=== PATIENT | female | born 1940 | race Caucasian/White ===

== ENCOUNTER → 2024-07-03 12:14 | Outpatient (REF) | payer MEDICARE, SELFPAY | LOC: RAD 12:14 | PROVIDERS: ATTENDING PHYSICIAN Internal Medicine Rheumatology; FAMILY PHYSICIAN Family Medicine | DX: M81.0 Age-related osteoporosis without current pathological fracture (principal) | CPT/HCPCS: 77080 ==

== ENCOUNTER 2025-02-23 18:16 | Inpatient (IN) | payer MEDICARE, SELFPAY ==
[2025-02-23] VITALS (14 sets, daily range): BP systolic 121–177; BP diastolic 56–119; BMI 19.5; BMI 20.4
--- NOTE | 2025-02-23 10:20 | ED.GENMED ---
History of Present Illness
<Kathryn García, OIL PAINT SHADER - Last Filed: 02/23/25 17:23>
General
Chief Complaint: Fever
Source: patient
Exam Limitations: none
Time Seen by Provider: 02/23/25 10:14
Nursing documentation reviewed up to this point in time: agreed with
History of Present Illness
History of Present Illness:
84-year-old female with history of HTN, thyroid cancer with thyroidectomy, hiatal hernia repair, tubal ligation, cholecystectomy, chronic anxiety, pancreatitis with Whipple procedure 2000, presents with a fever and general malaise starting 5 days
ago. She took acetaminophen on that day but non since. The patient reports a feeling of sickness and concerns about the recurrence of previous cancer. She has experienced some difficulty swallowing for past year, intermittently, where things 'get
stuck' (points to epigastric area), although she can swallow water without difficulty. The patient feels fatigued and experienced chills associated with the fever, did not take temperature. She spoke with her primary care physician, Dr. Tillman, this
morning to inform him of her coming here.
Pt has upper endoscopy scheduled in 4 days at [place] with her GI Dr. Pastor
Past History
<Kathryn García, OIL PAINT SHADER - Last Filed: 02/23/25 17:23>
Past History
ED Past Medical History: Cancer, GERD and HTN
ED Past Surgical History: Bowel resection (him him) and Orthopedic
Social History
Tobacco: Non-smoker
Alcohol: None
Drug: None
Personal:
Living: alone
Employment: Disabled
Family History
Family History: Hypertension
Review of Systems
<Kathryn García, OIL PAINT SHADER - Last Filed: 02/23/25 17:23>
Review of Systems
Allergies reviewed?: Yes
All Other Systems: ROS reviewed and negative except as documented in HPI and ROS
Constitutional: Reports fever, fatigue and chills
Respiratory: Denies cough or trouble breathing
Cardiac: Denies chest pain
ABD/GI: Reports other (food gets stuck at times past year.); Denies abdominal pain, nausea, vomiting, diarrhea, constipated, bloody stools or black stools
: Denies dysuria, frequency or difficulty voiding
Musculoskeletal: Reports no symptoms; Denies edema
Skin: Reports no symptoms
Neurological: Reports headache (mild, general )
Phy Exam
<Kathryn García, OIL PAINT SHADER - Last Filed: 02/23/25 17:23>
Physical Exam
Physical Exam:
GENERAL: No acute distress. A&Ox3.
CONSTITUTIONAL: Temp 101.2
EYES: clear, conjunctivae normal
ENMT: moist mucus membranes, Pharynx nl
RESPIRATORY: Regular respirations, nonlabored, lungs clear.
CARDIOVASCULAR: Regular rate and rhythm, no murmurs, no rubs.
GI: Soft, mild tenderness RUQ, normal BS
MUSCULOSKELETAL: Moves with ease. Well perfused.
SKIN: Warm, dry, pink
PSYCH: Normal mood and affect. Well kept, interactive and appropriate
NEUROLOGIC: Awake, alert and oriented. No focal neurological deficits
Sepsis
<Kathryn García, OIL PAINT SHADER - Last Filed: 02/23/25 17:23>
Sepsis Screening
Sepsis Assessment: Sepsis Ruled Out
Sepsis Screen
Sepsis Screen: Sepsis Ruled Out
Date: 02/23/25
Time: 17:23
<Sowmya Quiroga, DO - Last Filed: 02/23/25 20:57>
Sepsis Screen
Sepsis Screen: Sepsis Ruled Out
Date: 02/23/25
Time: 20:56
Course
<Kathryn García, OIL PAINT SHADER - Last Filed: 02/23/25 17:23>
Orders/Labs/Results
Orders:
Orders
02/23/25 10:30
Acetaminophen [Tylenol] 1,000 mg PO NOW STA
CR Chest - 2 Views Urgent
Comment:
Reason For Exam: fever, chills, fagigue
02/23/25 10:31
0.9% Sodium Chloride 1000 ml [Nss] 1,000 ml IV BOLUS
02/23/25 10:41
COVID-19 Antigen Urgent
Source: Nasal Swab
Complete Blood Count/With Diff Urgent
Comprehensive Metabolic Panel Urgent
Lactic Acid Q4H
Comment: CANCEL 2nd LACTIC ACID IF 1st LACTIC ACID IS LESS THAN 2
Blood Culture Q30M
JEMAL Source: Blood/Venous
Specimen Description:
Blood Culture Q30M
JEMAL Source: Blood/Venous
Specimen Description:
02/23/25 11:31
Urinalysis Reflex To Culture Urgent
Date Specimen was Collected: 02/23/25
Time Specimen was Collected: 11:30
02/23/25 13:04
CT Abd/Pel (IV only)-DH only Urgent
Comment:
Reason For Exam: fever, abd pain
02/23/25 15:04
Ketorolac [Toradol] 15 mg .ROUTE .STK-MED ONE
Ketorolac [Toradol] 15 mg IV NOW STA
02/23/25 15:08
Piperacillin/Tazo 3.375 Gram [Zosyn] 3.375 gram in 50 ml IV NOW
02/23/25 17:46
Add On- LAB Routine
Tests Added?: lactate
GASTROINTESTINAL CONSULT Routine
Consulting Provider: Chalino Hoff
Was physician already notified: Yes
02/23/25 17:47
Admit/Transfer Patient As Directed
Co-Sign Provider:
Level of Care: Inpatient admission
Assign to:: Medical/Surgical
Physician / Group: Hospitalist
Diagnosis: Fever
Reason for Hospitalization: as above
Expected length of stay greater than two midnights?: Yes
ELOS- Estimated Length of Stay in days: 3
I certify the patient meets the requirements for IP care: Yes
PRN Pain Medication Management As Directed
May give lesser potent ordered pain med per pt: Yes
preference::
Protocol:: Medication orders for pain may be administered in a
manner that supports deferring to patient preference
when the pt is:
- Requesting an ordered lesser potent pain medication.
Least to most potent pain medications are defined
as: acetaminophen < NSAID < tramadol < opioids
(morphine, oxycodone, hydromorphone).
- Requesting a lesser dose of the same medication IF
ORDERED.
- Requesting a less intrusive route of administration
if both routes are prescribed by the provider (PO <
IV).
02/23/25 17:49
Code Status As Directed
Resuscitation Status: Full Code
02/23/25 18:27
Lorazepam [Ativan] 0.5 mg PO TIDPRN PRN anxiety
Abnormal Lab Results
02/23/25
10:41
RBC 3.45 L 10^6/uL
(4.20-5.40)
Hgb 9.8 L g/dL
(12.0-16.0)
Hct 30.8 L %
(37.0-47.0)
MCHC 31.8 L g/dL
(33.0-37.0)
Absolute Lymphs (auto) 0.4 L 10^3/uL
(1.2-3.4)
Neutrophils % 85.9 H %
(42.2-75.2)
Lymphocytes % 5.1 L %
(20.5-51.1)
BUN 35 H mg/dl
(7-17)
Creatinine 1.3 H mg/dL
(0.6-1.0)
02/23/25 10:41
02/23/25 10:41
Vital Signs
Initial and Last Documented VS:
Initial Vital Signs
Temp Pulse Resp BP Pulse Ox
99 F 82 22 177/92 95
02/23/25 09:40 02/23/25 09:40 02/23/25 09:40 02/23/25 09:40 02/23/25 09:40
Last Documented Vital Signs
Temp Pulse Resp BP Pulse Ox
99.9 F 68 21 148/78 81
02/23/25 20:05 02/23/25 18:15 02/23/25 10:45 02/23/25 20:00 02/23/25 20:06
<Sowmya Quiroga, DO - Last Filed: 02/23/25 20:57>
Orders/Labs/Results
Orders:
Orders
02/23/25 10:30
Acetaminophen [Tylenol] 1,000 mg PO NOW STA
CR Chest - 2 Views Urgent
Comment:
Reason For Exam: fever, chills, fagigue
02/23/25 10:31
0.9% Sodium Chloride 1000 ml [Nss] 1,000 ml IV BOLUS
02/23/25 10:41
COVID-19 Antigen Urgent
Source: Nasal Swab
Complete Blood Count/With Diff Urgent
Comprehensive Metabolic Panel Urgent
Lactic Acid Q4H
Comment: CANCEL 2nd LACTIC ACID IF 1st LACTIC ACID IS LESS THAN 2
Blood Culture Q30M
JEMAL Source: Blood/Venous
Specimen Description:
Blood Culture Q30M
JEMAL Source: Blood/Venous
Specimen Description:
02/23/25 11:31
Urinalysis Reflex To Culture Urgent
Date Specimen was Collected: 02/23/25
Time Specimen was Collected: 11:30
02/23/25 13:04
CT Abd/Pel (IV only)-DH only Urgent
Comment:
Reason For Exam: fever, abd pain
02/23/25 15:04
Ketorolac [Toradol] 15 mg .ROUTE .STK-MED ONE
Ketorolac [Toradol] 15 mg IV NOW STA
02/23/25 15:08
Piperacillin/Tazo 3.375 Gram [Zosyn] 3.375 gram in 50 ml IV NOW
02/23/25 17:46
Add On- LAB Routine
Tests Added?: lactate
GASTROINTESTINAL CONSULT Routine
Consulting Provider: Chalino Hoff
Was physician already notified: Yes
02/23/25 17:47
Admit/Transfer Patient As Directed
Co-Sign Provider:
Level of Care: Inpatient admission
Assign to:: Medical/Surgical
Physician / Group: Hospitalist
Diagnosis: Fever
Reason for Hospitalization: as above
Expected length of stay greater than two midnights?: Yes
ELOS- Estimated Length of Stay in days: 3
I certify the patient meets the requirements for IP care: Yes
PRN Pain Medication Management As Directed
May give lesser potent ordered pain med per pt: Yes
preference::
Protocol:: Medication orders for pain may be administered in a
manner that supports deferring to patient preference
when the pt is:
- Requesting an ordered lesser potent pain medication.
Least to most potent pain medications are defined
as: acetaminophen < NSAID < tramadol < opioids
(morphine, oxycodone, hydromorphone).
- Requesting a lesser dose of the same medication IF
ORDERED.
- Requesting a less intrusive route of administration
if both routes are prescribed by the provider (PO <
IV).
02/23/25 17:49
Code Status As Directed
Resuscitation Status: Full Code
02/23/25 18:27
Lorazepam [Ativan] 0.5 mg PO TIDPRN PRN anxiety
Abnormal Lab Results
02/23/25
10:41
RBC 3.45 L 10^6/uL
(4.20-5.40)
Hgb 9.8 L g/dL
(12.0-16.0)
Hct 30.8 L %
(37.0-47.0)
MCHC 31.8 L g/dL
(33.0-37.0)
Absolute Lymphs (auto) 0.4 L 10^3/uL
(1.2-3.4)
Neutrophils % 85.9 H %
(42.2-75.2)
Lymphocytes % 5.1 L %
(20.5-51.1)
BUN 35 H mg/dl
(7-17)
Creatinine 1.3 H mg/dL
(0.6-1.0)
02/23/25 10:41
02/23/25 10:41
Vital Signs
Initial and Last Documented VS:
Initial Vital Signs
Temp Pulse Resp BP Pulse Ox
99 F 82 22 177/92 95
02/23/25 09:40 02/23/25 09:40 02/23/25 09:40 02/23/25 09:40 02/23/25 09:40
Last Documented Vital Signs
Temp Pulse Resp BP Pulse Ox
99.9 F 68 21 148/78 81
02/23/25 20:05 02/23/25 18:15 02/23/25 10:45 02/23/25 20:00 02/23/25 20:06
<Kathryn García, OIL PAINT SHADER - Last Filed: 02/23/25 17:23>
MDM/Problems Addressed
Differential Diagnosis Includes:
The Differential Diagnosis includes, in no particular order and is not limited to:
1. Urinary tract infection
2. Viral infection
3. Cancer recurrence or metastasis
4. Esophageal stricture
5. Gastroesophageal reflux disease (GERD)
6. Bacterial infection
7. Anemia
8. Dehydration
9. Pneumonia
MDM/Problems Addressed:
84-year-old female with history of COPD, HTN, thyroid cancer with thyroidectomy, hiatal hernia repair, tubal ligation, cholecystectomy, chronic anxiety, pancreatitis with Whipple procedure 2000, presents with a fever and general malaise starting 5
days ago. She took acetaminophen on that day but non since. The patient reports a feeling of sickness and concerns about the recurrence of previous cancer. She has experienced some difficulty swallowing for past year, intermittently, where things
'get stuck' (points to epigastric area), although she can swallow water without difficulty. The patient feels fatigued and experienced chills associated with the fever, did not take temperature. She spoke with her primary care physician, Dr. Tillman,
this morning to inform him of her coming here.
Pt has upper endoscopy scheduled in 4 days at [place] with her GI Dr. Pastor
Temp 101.2 for this examiner. Pleasant, NAD
CBC: No clinically significant abnormality, consistent with her chronic anemia
CMP: No clinically significant abnormality, consistent with her baseline CKD
Lactic:
UA negative
Chest x-ray NAD
COVID-negative
2:15 p.m.
IMPRESSION:
1. Post Whipple procedure. There is new marked intrahepatic biliary dilation in the left lobe of the liver, suggesting that the patient's fever is most likely related to cholangitis.
2. Right lower lobe 7 mm nodule, larger as compared with 3 mm prior. Given the interval change in size, at least somewhat suspicious for malignancy. Given the relatively small amount of growth over five-year interval, an inflammatory etiology is
also possible.
3. Bilateral renal cortical scarring. Asymmetric atrophic changes of the right kidney as compared with the left.
4. Material with the appearance of stool throughout the distal small bowel compatible with significant degree of slow transit.
5. Advanced aortoiliac atherosclerotic changes.
6. Numerous chronic appearing compression deformities of thoracic and lumbar spine as above. Probable chronic posttraumatic deformity left iliac wing.
Plan: Admit: Acute cholangitis, IV antibiotics, Hospitalist notified of admission.
<Kathryn García NP - Last Filed: 02/23/25 17:23>
*Pulse Oximetry
SaO2: 95
Oxygen Mode of Delivery: Room air
Patient hypoxic: no
*Critical Care Note
Total Time (30-74mins, 75-104mins- exclusive of procedures): Not Applicable
<Sowmya Quiroga DO - Last Filed: 02/23/25 20:57>
Update Note
Update Note:
Patient care assumed by me while awaiting transport upstairs. Patient was evaluated by the hospitalist who had been in contact with GI who felt that patient needed to be transferred to higher level of care. I discussed this with the patient who
would prefer to be transferred to [facility] if she needed to leave this hospital. I reached out to the [facility] transfer center. While awaiting callback from [facility], gastroenterology was able to rereview patient record and does not feel that transfer is
indicated. I then reviewed case with hospitalist team who accepts patient for admission.
ED Attending Note
<Kathryn García OIL PAINT SHADER - Last Filed: 02/23/25 17:23>
-
Portions of this chart may have been created with voice recognition software.� Occasional wrong word or��sound alike� substitutions may have occurred due to the inherent limitations of voice recognition software.
Discharge Plan
Departure
Patient Disposition: Admit
Date of Disposition: 02/23/25
Time of Disposition: 15:05
Admit to: Med/Surg
Presentation/result/management discussed w/ accepting MD/DO: Hospitalist
Condition: Fair
Discharge Problem:
Acute cholangitis, Fever
Interventions
Interventions:
*Risk Screen - Suicide Last Done: 02/23/25 09:40
*General Assessment Last Done: 02/23/25 10:23
*Neglect/Abuse Screening Last Done: 02/23/25 10:23
*ED- Fall Risk Assessment Last Done: 02/23/25 10:23
*ED COVID-19 Vaccine History Last Done: 02/23/25 10:23
ED- Neurological Assessment Last Done: 02/23/25 10:23
ED-Skin Assessment Last Done: 02/23/25 10:23
[2025-02-23] MEDS: NSS 1000 IV ×2 (10:46→22:18)
[2025-02-23] MEDS: TYLENOL 1000 MG PO ×2 (10:51→19:21)
[2025-02-23 10:55] LABS: Hematocrit 30.8 % (37.0-47.0); Hemoglobin 9.8 g/dL (12.0-16.0); Mean Corp Hgb Conc. 31.8 g/dL (33.0-37.0); Mean Corpuscular Volume 89.3 fL (81.0-99.0); Nucleated Red Blood Cells % 0 %; Platelet Count 222 10^3/uL (130-400); Red Cell Dist. Width 14.5 % (11.5-14.5)
[2025-02-23 11:10] LABS: ALT (SGPT) 19 U/L (0-35); AST (SGOT) 21 U/L (14-36); Albumin 3.8 g/dl (3.5-5.0); Alkaline Phosphatase 107 U/L (38-126); Blood Urea Nitrogen 35 mg/dl (7-17); Calcium 9.1 mg/dl (8.4-10.2); Carbon Dioxide 25 mmol/L (22-30); Chloride 107 mmol/L (98-107); Estimated Creatinine Clearance 24 ml/min; Glucose 99 mg/dl (70-99); Potassium 4.5 mmol/L (3.5-5.1); Sodium 140 mmol/L (135-145); Total Protein 6.7 g/dl (6.3-8.2); eGFR 41.06
[2025-02-23 11:16] LABS: COVID-19 Antigen Negative (Negative)
[2025-02-23 11:40] LABS: Urine Character Clear (Clear)
[2025-02-23] MEDS: TORADOL 15 MG IV (15:05)
[2025-02-23] MEDS: ZOSYN 50 IV ×2 (15:19→22:17)
--- NOTE | 2025-02-23 17:04 | HPS.HSE ---
Family Physician
-
Family Physician: Lawrence Tillman
Chief Complaint
-
Fever
History of Present Illness
This is an 85-year-old female past medical history of hypertension, thyroid cancer s/p thyroidectomy, hiatal hernia repair, tubal ligation, cholecystectomy, chronic anxiety, pancreatic cancer s/p Whipple procedure 2000 who presents to the ED
complaining of fever and chills. Patient reports intermittent fevers for the past 5 days in addition to chills. She denies sick contacts, she denies cough, congestion, urinary symptoms. In addition patient admits mild generalized abdominal pain
that she rates as a 2 out of 10. States pain does not radiate anywhere. She reports nausea episodes but denies vomiting. Denies change in stools, reports bowel movements, passing gas. Denies blood in urine, denies unintentional weight loss.
Pertinent to history, patient reports chronic sensation of food 'getting stuck'. She states she has had difficulty swallowing solids for the past year, but denies difficulty swallowing liquids. She denies unintentional weight loss, with
hematemesis. She is scheduled for an upper endoscopy with her GI doctor at [place] in 4 days.
Upon presentation to the ED, blood pressure 177/92, temperature 99, pulse 82, respiratory 22, O2 sats 95% on room air.� Laboratory showed WBC 6.8, hemoglobin 9.8, hematocrit 30.8, platelets 222 chemistry unremarkable except creatinine 1.3. �She was
evaluated with a chest x-ray- no acute disease and abdominal CT A/P
Medical History
Past Medical History
Past Medical History: Reports Other (hypertension, thyroid cancer s/p thyroidectomy, hiatal hernia repair, tubal ligation, cholecystectomy, chronic anxiety, pancreatic cancer s/p Whipple procedure 2000)
Past Surgical History: Reports Cholecystectomy and Gynocological
Social History
Tobacco: Non-smoker
Alcohol: None
Drug: None
Personal:
Living: Alone
Employment: Disabled
Family History
Family History: Hypertension
Allergies / Home Medications
Allergies reflects when Allergies were last updated in [facility].
Home Medications with original date entered in [facility]
Allergy/Medication List:
Allergies
Allergy/AdvReac Type Severity Reaction Status Date / Time
No Known Allergies Allergy Unverified 02/23/25 09:40
Home Medications
lorazepam 0.5 mg tablet 0.5 mg PO TIDPRN PRN anxiety 09/13/10
multivitamin with folic acid 400 mcg tablet (Tab-A-Roberth) 1 tab PO DAILY Supplement 09/13/10
denosumab 60 mg/mL subcutaneous syringe (Prolia) 60 mg SQ [id number] 04/01/20
escitalopram oxalate 20 mg tablet 20 mg PO DAILY Mental Health/Anxiety 04/01/20
levothyroxine 150 mcg tablet 150 mcg PO DAILY Thyroid 04/01/20
benazepril 20 mg-hydrochlorothiazide 12.5 mg tablet 1 tab PO DAILY 02/23/25
tjihwi-zatnanea-ogbncuv 36,000-114,000-180,000 unit capsule,delay rel (Creon) 1 cap PO DAILYPRN PRN with snacks 02/23/25
jbvnkv-ahyteeqo-pkncilz 36,000-114,000-180,000 unit capsule,delay rel (Creon) 3 cap PO AC 02/23/25
omeprazole 40 mg capsule,delayed release 40 mg PO BID 02/23/25
sucralfate 1 gram tablet 1 g PO DAILY 02/23/25
Review of Systems
-
History Source: Patient
A 12 point ROS was completed and negative except as noted: Yes
Constitutional: Reports Other (All review of systems negative except as documented in HPI)
Physical Exam
Vital Signs
Vital Signs
Temp Pulse Resp BP Pulse Ox
101.2 F H 67 21 146/62 98
02/23/25 10:40 02/23/25 16:45 02/23/25 10:45 02/23/25 16:00 02/23/25 16:45
Physical Exam
General: Well Developed, No Apparent Distress, Comfortable and Conversant
HEENT: NormoCephalic
Respiratory: Clear; No Wheezes or Crackles
Cardiac: S1/S2 and Regular Rhythm
GI: Soft, Non Distended, Normal Bowel Sounds and Tender (Mild tenderness to the right upper quadrant)
Musculoskeletal: No Edema
Neuro: Awake, Alert, Oriented and AO x 3
Laboratory Results
-
02/23/25 10:41
02/23/25 10:41
Laboratory Results
Lactic Acid Cancelled 02/23/25 14:30
Total Bilirubin 0.6 mg/dl (0.2-1.3) 02/23/25 10:41
AST 21 U/L (14-36) 02/23/25 10:41
ALT 19 U/L (0-35) 02/23/25 10:41
Alkaline Phosphatase 107 U/L (38-126) 02/23/25 10:41
Impression/Plan
-
Assessment/plan
#Fever likely secondary to ascending cholangitis
-CT abdomen and pelvis on presentation showing new left intrahepatic biliary duct dilation in the left lobe of the liver likely related to cholangitis
-History of Whipple procedure, now with biliary tract dilation
-Blood cultures obtained in the ED
-Initiated on IV Zosyn in ED
-continue broad-spectrum IV antibiotics with Zosyn
-Check lactate
-Tylenol for fevers
-Consult GI for possible ERCP
-Trend LFTs
#Dysphagia to solids
-Patient reports chronic sensation of food getting stuck,
-Was scheduled for endoscopy in 4 days at [place] with a GI doc
-Speech eval
-Consult GI
-Keep n.p.o. for now
#GERD
-PPI
#Chronic anemia
-Monitor Hgb Level
-Transfuse for Hgb <7
#Hypertension
-Hold Home Benzapril/hctz, given Cre level.
#Hypothyroidism
-Continue levothyroxine
#Anxiety
-Continue citalopram, lorazepam as needed
#Chronic compression fractures and kyphosis
CODE STATUS full code
DVT prophylaxis heparin subcu
[2025-02-23] MEDS: ATIVAN 0.5 MG PO (18:34)
[2025-02-23] MEDS: HEPARIN SC (22:00)
--- NOTE | 2025-02-23 22:35 | W.PN.UPDATE ---
Update Note
Progress Note Update
Patient seen and examined independently
Please see resident note for full details
85-year-old woman presents with fever and chills. She reports intermittent fevers for the past 5 days. She denies sick contacts, she denies cough, congestion, urinary symptoms. generalized abdominal pain 2 out of 10. Denies change in stools,
Reports chronic sensation of food 'getting stuck'. She states she has had difficulty swallowing solids for the past year, but denies difficulty swallowing liquids. She denies unintentional weight loss, with hematemesis. She is scheduled for an
upper endoscopy with her GI doctor at [place] in 4 days. At the time of my interview she was comfortable.
Past Medical History
essential hypertension,
thyroid cancer s/p thyroidectomy,
hiatal hernia repair,
tubal ligation,
cholecystectomy,
chronic anxiety,
pancreatic cancer s/p Whipple procedure 2000)
Physical Exam
General: Well Developed, No Apparent Distress,
HEENT: NormoCephalic
Respiratory: Clear;
Cardiac: S1/S2
GI: Soft, Non Distended, Tender (Mild tenderness to the right upper quadrant)
Neuro: Awake, Alert, Oriented and AO x [address] abdomen and pelvis:
new left intrahepatic biliary duct dilation in the left lobe of the liver likely related to cholangitis
Assessment/plan
1. Fever, possibly secondary to ascending cholangitis, but normal LFTs
History of Whipple procedure, now with biliary tract dilation
Blood cultures obtained in the ED
IV Zosyn
Check lactate
Consult GI for possible MRCP vs ERCP
Trend LFTs
2. Dysphagia to solids
Consult GI
Keep n.p.o. until seen by GI
See resident note for full details on
GERD
Chronic anemia
essential Hypertension
Hypothyroidism
Anxiety
Chronic compression fractures and kyphosis
[2025-02-24] MEDS: ZOSYN 50 IV ×4 (03:37→21:22)
[2025-02-24] MEDS: SYNTHROID PO (05:06)
[2025-02-24 07:50] VITALS: BP 136/60
[2025-02-24] MEDS: ZENPEP DELAYED RELEASE CAPSULE PO ×3 (08:03→15:54)
[2025-02-24] MEDS: CARAFATE PO (08:03)
[2025-02-24] MEDS: THERAGRAN PO (08:04)
[2025-02-24 08:13] LABS: Hematocrit 28.9 % (37.0-47.0); Hemoglobin 9.1 g/dL (12.0-16.0); Mean Corp Hgb Conc. 31.5 g/dL (33.0-37.0); Mean Corpuscular Volume 90.9 fL (81.0-99.0); Nucleated Red Blood Cells % 0 %; Platelet Count 166 10^3/uL (130-400); Red Cell Dist. Width 14.2 % (11.5-14.5)
[2025-02-24 08:18] LABS: ALT (SGPT) 17 U/L (0-35); AST (SGOT) 23 U/L (14-36); Albumin 3.3 g/dl (3.5-5.0); Alkaline Phosphatase 111 U/L (38-126); Blood Urea Nitrogen 24 mg/dl (7-17); Calcium 8.0 mg/dl (8.4-10.2); Carbon Dioxide 24 mmol/L (22-30); Chloride 109 mmol/L (98-107); Estimated Creatinine Clearance 24 ml/min; Glucose 89 mg/dl (70-99); Magnesium 1.7 mg/dl (1.6-2.3); Potassium 4.0 mmol/L (3.5-5.1); Sodium 140 mmol/L (135-145); Total Protein 5.8 g/dl (6.3-8.2); eGFR 41.06
--- NOTE | 2025-02-24 09:02 | CON.GI ---
Consultation
-
Date/Time Consultation Requested: 02/23/2025, 6pm
Date/Time Consultation Performed: 02/23/2025, 9am
Requesting Provider: Dr. Denis/Dr. Hunter
Performing Provider: Dr. Hoff
Reason for Consultation: abnormal CT
Medical History
Chief Complaint / HPI
Chief Complaint: fever
History of Present Illness:
85 yo F pmh panc ca s/p Whipple 2000 presenting to ER with fevers and chills. Also with vague abd pain (lower abdomen). Fever started last Wednesday. Tmax here 101.2.
Has chronic SOB and diarrhea, both unchanged. Denies urinary symptoms.
Questionable dysphagia - family at bedside states no, patient states difficulty swallowing bread. Family states EGD was scheduled to assess for ulcer not for dysphagia this week at [facility] (follows Dr. Montemayor).
Of note admitted 2019 with fever, epigastric pain underwent EGD with Dr. Thompson 10 cmm HH, tortuous eosophagus, edema, friable mucosa, hemorrhagic appearance, edema, friability, ulceration, bile in stomach and jejunum. Recommend indefinite PPI.
In ER - found to have completely normal LFTs (TB 0.6 yesterday, 0.8 today, AST/ALT/AP normal). GI was consulted for cholangitis based on CT read which showed 'new marked intrahepatic biliary dilation in left lobe of liver suggesting cholangitis;
lung nodule suspicious for malignancy, stool in colon, deformities in spine, renal cortical scarring'. Blood cultures + Kleb PNA.
Past Medical History
Past Medical History: Cancer (thyroid cancer, Whipple), HTN and Other (anxiety)
Past Surgical History: Other ([facility], director part, HH repair, tubal ligation, Whipple, thyroidectomy)
Social History
Tobacco: Non-Smoker
Alcohol: None
Drug: None
Family History
Family History: Reviewed & Not Pertinent
Allergies / Home Medications
Allergy/AdvReac Type Severity Reaction Status Date / Time
No Known Allergies Allergy Unverified 02/23/25 09:40
�Medication �Instructions �Recorded
lorazepam 0.5 mg tablet 0.5 mg PO TIDPRN PRN anxiety 09/13/10
multivitamin with folic acid 400 1 tab PO DAILY Supplement 09/13/10
mcg tablet (Tab-A-Roberth)
denosumab 60 mg/mL subcutaneous 60 mg SQ [id number] 04/01/20
syringe (Prolia)
escitalopram oxalate 20 mg tablet 20 mg PO DAILY Mental 04/01/20
Health/Anxiety
levothyroxine 150 mcg tablet 150 mcg PO DAILY Thyroid 04/01/20
benazepril 20 1 tab PO DAILY 02/23/25
mg-hydrochlorothiazide 12.5 mg
tablet
wxczns-ibehsbss-kxsokfl 1 cap PO DAILYPRN PRN with snacks 02/23/25
36,000-114,000-180,000 unit
capsule,delay rel (Creon)
rksvlp-iknqhsls-pqewcgr 3 cap PO AC 02/23/25
36,000-114,000-180,000 unit
capsule,delay rel (Creon)
omeprazole 40 mg capsule,delayed 40 mg PO BID 02/23/25
release
sucralfate 1 gram tablet 1 g PO DAILY 02/23/25
Review of Systems
-
All other systems: A 12 pt ROS was Negative except as stated above in HPI
Vital Signs
Temp Pulse Resp BP Pulse Ox
99.3 F 75 24 136/60 96
02/24/25 07:50 02/24/25 07:50 02/24/25 07:50 02/24/25 07:50 02/24/25 07:50
Physical Exam
Exam
General: Well Developed
HEENT: Normocephalic
Respiratory: Clear
Cardiac: S1/S2
GI: Non Tender and Non Distended
Musculoskeletal: No Clubbing
Skin: Warm
Neuro: AO x 3
Hematologic/Lymphatic: No Lymphadenopathy
Psych: Calm
Results
WBC 6.4 10^3/uL (4.8-10.8) 02/24/25 07:00
Hgb 9.1 g/dL (12.0-16.0) L 02/24/25 07:00
Hct 28.9 % (37.0-47.0) L 02/24/25 07:00
MCV 90.9 fL (81.0-99.0) 02/24/25 07:00
Plt Count 166 10^3/uL (130-400) D 02/24/25 07:00
Absolute Neuts (auto) 5.2 10^3/uL (1.4-6.5) 02/24/25 07:00
Sodium 140 mmol/L (135-145) 02/24/25 07:00
Potassium 4.0 mmol/L (3.5-5.1) 02/24/25 07:00
Chloride 109 mmol/L (98-107) H 02/24/25 07:00
Carbon Dioxide 24 mmol/L (22-30) 02/24/25 07:00
BUN 24 mg/dl (7-17) H 02/24/25 07:00
Creatinine 1.3 mg/dL (0.6-1.0) H 02/24/25 07:00
Calcium 8.0 mg/dl (8.4-10.2) L 02/24/25 07:00
Total Bilirubin 0.8 mg/dl (0.2-1.3) 02/24/25 07:00
AST 23 U/L (14-36) 02/24/25 07:00
ALT 17 U/L (0-35) 02/24/25 07:00
Alkaline Phosphatase 111 U/L (38-126) 02/24/25 07:00
Diagnostic Image Results:
Prior GI Procedures:
EGD:
Colonoscopy:
Assessment / Plan
-
84 yo pmh Whipple presenting for fever, CT with intrahepatic meli dil but LFTs normal and no RUQ pain however + Kleb.
Recommend MRI/MRCP ordered and pending.
IF MRCP + for biliary obstruction cannot do ERCP here due to Whipple anatomy.
Would need to be transferred d/w pt/family at bedside now IF necessary.
Continue Zosyn.
Continue PPI BID.
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 dysphagia as well).
D/w hospitalist in detail.
-
-
Thank you for consultation and allowing me to participate in the patient's care. Please call the operations processor GI physician during the after hours with any questions or concerns.
[2025-02-24] MEDS: HEPARIN 5000 UNITS SC ×2 (09:18→20:46)
[2025-02-24] MEDS: NSS (PRESERVATIVE FREE) 10 ML IV ×2 (10:54→20:54)
[2025-02-24] MEDS: PROTONIX IV 40 MG IV ×2 (10:54→20:54)
[2025-02-24] MEDS: MORPHINE SULFATE 1 MG IV (10:54)
--- NOTE | 2025-02-24 12:09 | W.PN.HOSP.TC ---
Addendum entered and electronically signed by Jarrell Mejia MD 02/24/25 13:53:
Severe intrahepatic ductal dilatation in the left lobe of the liver. Two ovoid low signal intensity filling defects in the central left hepatic duct raising suspicion for intrahepatic gallstones (hepatolithiasis). Intrahepatic pneumobilia could have
a similar MRI appearance.
Spoke to GI at - engaged with [facility] for Tx for ERCP
[place] Accepted
DC is in
Cont abx
ERCP and further interventions as per [facility]
More than 30 minutes spent in discharge including
Final examination of the patient
Summarizing hospital stay
Instructions for continuing care to all relevant caregivers
Preparation of discharge records, prescriptions, and referral forms
Total time spent (in minutes): 36
Original Note:
Today's Communication/Plan
-
Follow-up MRI/MRCP
If MRCP is positive for biliary patholgoy, cannot do ERCP here due to Whipple's anatomy
If MRCP negative, defer to GI for EGD
Continue antibiotics
Follow-up cultures, repeat
Continue PPI twice daily
Speech eval
Assessment / Plan
Assessment / Plan
General: Well Developed, No Apparent Distress, Comfortable and Conversant
HEENT: NormoCephalic
Respiratory: Clear; No Wheezes or Crackles
Cardiac: S1/S2 and Regular Rhythm
GI: Soft, Non Distended, Normal Bowel Sounds and Tender (Mild tenderness to the right upper quadrant)
Musculoskeletal: No Edema
Neuro: Awake, Alert, Oriented and AO x 3
#Sepsis
#Bacteremia
�Suspected source includes biliary history of Whipple's although gastrojejunal ulcer remains higher on the differential, allowing for translocation of Klebsiella
� Follow-up MRI/MRCP
� If MRCP is positive for biliary patholgoy, cannot do ERCP here due to Whipple's anatomy
� If MRCP negative, defer to GI for EGD
� Continue antibiotics
� Follow-up cultures, repeat
� Continue PPI twice daily
�Trend LFTs
#Dysphagia to solids
-Patient reports chronic sensation of food getting stuck,
-Was scheduled for endoscopy in 4 days at [facility] with a GI doc
-Speech eval
-Consult GI
-Keep n.p.o. for now, continue continue diet once cleared by speech after MRI
#Right lower lobe 7 mm nodule, larger as compared with 3 mm prior.
- Given the interval change in size, at least somewhat suspicious for malignancy.
-Given the relatively small amount of growth over five-year interval, an inflammatory etiology is also possible.
-F/u outpatient
#GERD
-PPI twice daily
#Chronic anemia
-Monitor Hgb Level
-Transfuse for Hgb <7
#Hypertension
�Hold antihypertensives for today while n.p.o.
#Hypothyroidism
-Continue levothyroxine
#Anxiety
-Continue citalopram, lorazepam as needed
#Chronic compression fractures and kyphosis
CODE STATUS full code
DVT prophylaxis heparin subcu
Total time spent on today's encounter was 50 minutes which included time spent in counseling the patient/family regarding diagnosis and treatment plan as listed above, goals of care, and symptom management. Case was discussed with nursing staff,
specialists, and care coordinators/case management. All labs and imaging personally reviewed by me. Remainder the time spent in detailed review of previous records, lab data, imaging, and other medical provider documentation.
Anticipated Discharge: > 48 hours
Subjective/Interval History
-
Date of Service: February 24, 2025
Anxious this morning. Blood cultures positive
Objective Data
-
Labs:
Laboratory Results
02/24/25
07:00
WBC 6.4
Hgb 9.1 L
Hct 28.9 L
Plt Count 166 D
Sodium 140
Potassium 4.0
Chloride 109 H
Carbon Dioxide 24
BUN 24 H
Creatinine 1.3 H
Glucose 89
Calcium 8.0 L
Total Bilirubin 0.8
AST 23
ALT 17
Alkaline Phosphatase 111
Vital Signs:
Vital Signs
Temp Pulse Resp BP Pulse Ox
99.3 F 75 24 136/60 96
02/24/25 07:50 02/24/25 07:50 02/24/25 07:50 02/24/25 07:50 02/24/25 07:50
I&O
02/23/25 02/24/25 02/25/25
06:59 06:59 06:59
Intake Total 660 / 660
Balance 660 / 660
Review of Systems
-
History Source: Patient
All other systems: Not reviewed unless documented
Data Reviewed
-
Diagnostic Radiology: Report Reviewed by me
CT Scan: Report Reviewed by me
Labs: Labs Reviewed by me
--- NOTE | 2025-02-24 13:53 | W.DS.TRANS ---
DC Summary - Respiratory Support Technician
-
Discharge Instructions:
Discharge Diagnosis/Procedures
#Sepsis
#Bacteremia
�Suspected source includes biliary history of
Whipple's
Diet Regular
Instructions:
Stand-Alone Forms:
Changes to Home Medications: No
Discharge Medications:
DC Medications w/original date entered in [employer]
lorazepam 0.5 mg tablet 0.5 mg PO TIDPRN PRN anxiety 09/13/10
multivitamin with folic acid 400 mcg tablet (Tab-A-Roberth) 1 tab PO DAILY Supplement 09/13/10
denosumab 60 mg/mL subcutaneous syringe (Prolia) 60 mg SQ [id number] 04/01/20
escitalopram oxalate 20 mg tablet 20 mg PO DAILY Mental Health/Anxiety 04/01/20
levothyroxine 150 mcg tablet 150 mcg PO DAILY Thyroid 04/01/20
benazepril 20 mg-hydrochlorothiazide 12.5 mg tablet 1 tab PO DAILY Blood Pressure 02/23/25
gtaodj-gfsmepdo-rpazbmr 36,000-114,000-180,000 unit capsule,delay rel (Creon) 1 cap PO DAILYPRN PRN with snacks 02/23/25
uwdbdd-zebnwyty-njzyztk 36,000-114,000-180,000 unit capsule,delay rel (Creon) 3 cap PO AC Pancreas 02/23/25
omeprazole 40 mg capsule,delayed release 40 mg PO BID Gastrointestinal Issue 02/23/25
sucralfate 1 gram tablet 1 g PO DAILY Gastrointestinal Issue 02/23/25
Home Medication Changes
Pending Results: No
[2025-02-24] MEDS: LEXAPRO PO (14:03)
[2025-02-24 15:45] VITALS: BP 130/62
[2025-02-24] MEDS: NSS 1000 IV (15:53)
[2025-02-24 19:43] VITALS: BP 162/72
[2025-02-24] MEDS: VALIUM INJECTION 2 MG IV (21:06)
[2025-02-24 22:28] VITALS: BP 123/59
[2025-02-25 03:30] VITALS: BP 119/70
--- NOTE | 2025-02-25 03:30 | PTCARENOTE ---
Pt for transfer to [facility], updated transfer center.
[2025-02-25] MEDS: NSS 1000 IV (03:32)
[2025-02-25] MEDS: ZOSYN 50 IV ×4 (03:32→21:59)
[2025-02-25] MEDS: SYNTHROID PO (03:36)
[2025-02-25 07:00] VITALS: BP 142/78
[2025-02-25] MEDS: PROTONIX IV 40 MG IV ×2 (07:41→21:48)
[2025-02-25] MEDS: NSS (PRESERVATIVE FREE) 10 ML IV ×2 (07:41→21:47)
[2025-02-25] MEDS: HEPARIN 5000 UNITS SC ×2 (07:42→20:04)
[2025-02-25] MEDS: ZENPEP DELAYED RELEASE CAPSULE PO ×3 (07:42→15:57)
[2025-02-25] MEDS: LEXAPRO PO (07:42)
[2025-02-25] MEDS: CARAFATE PO (07:42)
[2025-02-25] MEDS: THERAGRAN PO (07:42)
[2025-02-25 09:29] LABS: Hematocrit 28.7 % (37.0-47.0); Hemoglobin 9.1 g/dL (12.0-16.0); Mean Corp Hgb Conc. 31.7 g/dL (33.0-37.0); Mean Corpuscular Volume 89.4 fL (81.0-99.0); Platelet Count 184 10^3/uL (130-400); Red Cell Dist. Width 14.6 % (11.5-14.5)
[2025-02-25 09:42] LABS: ALT (SGPT) 17 U/L (0-35); AST (SGOT) 25 U/L (14-36); Albumin 3.1 g/dl (3.5-5.0); Alkaline Phosphatase 103 U/L (38-126); Blood Urea Nitrogen 29 mg/dl (7-17); Calcium 7.6 mg/dl (8.4-10.2); Chloride 113 mmol/L (98-107); Estimated Creatinine Clearance 22 ml/min; Glucose 91 mg/dl (70-99); Potassium 4.7 mmol/L (3.5-5.1); Sodium 142 mmol/L (135-145); Total Protein 5.7 g/dl (6.3-8.2); eGFR 37.56
[2025-02-25 09:52] LABS: Carbon Dioxide 20 mmol/L (22-30)
--- NOTE | 2025-02-25 10:09 | W.PN.GI.CBS2 ---
Today's Communication / Plan
-
pending transfer [facility]
Assessment / Plan
-
84 yo pmh Whipptyler presenting for fever, CT with intrahepatic meli dil but LFTs normal and no RUQ pain however + Kleb.
MRI with intrahepatic filling defects.
Bili remains normal, no pain - atypical to have normal bilirubin if obstructed. However, CXR, urine studies unrevealing no other source.
D/w hospitalist yesterday do not have capabilities here for endoscopic removal of stones - he reached out to [facility] who accepted transfer.
I d/w [facility] fellow today informally - he mentioned location of stones PTC may be best. Also [facility] fellow recommended ID consult I d/w hospitalist.
Continue Zosyn.
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
Clear liquid diet.
History of ? dysphagia can follow up outpatient.
D/w hospitalist and [facility] fellow as above in detail.
Subjective
Subjective
Date of Service: February 25, 2025
No fevers, no pain overnight
hungry
Objective
Data Reviewed
Laboratory Data:
Laboratory Results
02/25/25 08:53
02/25/25 08:53
Laboratory Results
Magnesium 1.7 mg/dl (1.6-2.3) 02/24/25 07:00
Total Bilirubin 0.6 mg/dl (0.2-1.3) 02/25/25 08:53
AST 25 U/L (14-36) 02/25/25 08:53
ALT 17 U/L (0-35) 02/25/25 08:53
Alkaline Phosphatase 103 U/L (38-126) 02/25/25 08:53
Vital Signs and I&O:
Vital Signs
Temp Pulse Resp BP Pulse Ox
97.6 F 66 16 142/78 97
02/25/25 07:00 02/25/25 07:00 02/25/25 07:00 02/25/25 07:00 02/25/25 07:00
I&O
02/24/25 02/25/25 02/26/25
06:59 06:59 06:59
Intake Total 660 / 660 750 / 750
Balance 660 / 660 750 / 750
Physical Exam
Physical Exam
GI: Non Distended and Non Tender
[2025-02-25] MEDS: ATIVAN 0.5 MG PO ×2 (10:21→19:07)
[2025-02-25 10:59] VITALS: BMI 20.4
[2025-02-25 11:00] VITALS: BP 163/82
--- NOTE | 2025-02-25 11:28 | CM ---
CM reviewed chart, patient for transfer to [facility]- per transfer center [facility], , patient requires insurance auth-submitted via [employer], pending reference #[id number], accepting DrShakira at [facility]- Dr. Galen Burgess. Per
[facility], cannot accept patient with pending auth and need approval from insurance. Clinicals faxed to [facility]. [facility] will cash posting representative at [facility] to expedite auth. Nurse, family/patient aware. CM will continue to follow for all discharge
planning needs. Ambulance transport forms on chart.
Plan; authorization pending for transfer to [facility].
--- NOTE | 2025-02-25 12:00 | CM ---
Addendum entered by Louisa Patten 02/25/25 15:23:
Call placed to [facility] to check on authorization status, [phone], spoke with Billie Taylor still no determination from insurance, per insurance the have 24 to 72 hours to approve.
Original Note:
aquatics manager is following patient along with the assigned lead case manager, patient has been accepted by [facility], lead case manager spoke with lead case managerJohanna at [facility] who is requesting authorization for hospital to hospital transfer,
request sent through [employer] and pending reference number is [id number], all clinicals faxed to [phone], lead case manager left a message for Amelie Patel lead case manager at [facility] [phone] to expedite request. Call also placed to Oly at [facility]
to check on status and reference number is still pending per Oly.
Plan; Waiting on Auth for hospital to hospital transfer.
--- NOTE | 2025-02-25 12:25 | W.PN.HOSP.TC ---
Today's Communication/Plan
-
cont iv abx
f/u final cultures, repeat
CLD
Accepted to Tx to [facility] - awaiting bed; Level 1 Emergent Tx
Assessment / Plan
Assessment / Plan
General: Well Developed, No Apparent Distress, Comfortable and Conversant
HEENT: NormoCephalic
Respiratory: Clear; No Wheezes or Crackles
Cardiac: S1/S2 and Regular Rhythm
GI: Soft, Non Distended, Normal Bowel Sounds and Tender (Mild tenderness to the right upper quadrant)
Musculoskeletal: No Edema
Neuro: Awake, Alert, Oriented and AO x 3
#Sepsis
#Bacteremia, Klebsiella
�Suspected source includes biliary history of Whipple's although gastrojejunal ulcer remains higher on the differential, allowing for translocation of Klebsiella
� Follow-up MRI/MRCP: intrahepatic filling defects.
� Continue antibiotics
� Follow-up cultures, repeat
� Continue PPI twice daily
�Trend LFTs
� Can advance to clear liquid diet
� ID consulted
� Accepted for transfer to [place] for ERCP due to not having capabilities here for endoscopic removal of stones
#Dysphagia to solids
-Patient reports chronic sensation of food getting stuck,
-Was scheduled for endoscopy in 4 days at [place] with a GI doc
-Speech eval
-Consult GI
-CLD
#Right lower lobe 7 mm nodule, larger as compared with 3 mm prior.
- Given the interval change in size, at least somewhat suspicious for malignancy.
-Given the relatively small amount of growth over five-year interval, an inflammatory etiology is also possible.
-F/u outpatient
#GERD
-PPI twice daily
#Chronic anemia
-Monitor Hgb Level
-Transfuse for Hgb <7
#Hypertension
�Hold antihypertensives for today while n.p.o.
#Hypothyroidism
-Continue levothyroxine
#Anxiety
-Continue citalopram, lorazepam as needed
#Chronic compression fractures and kyphosis
CODE STATUS full code
DVT prophylaxis heparin subcu
More than 30 minutes spent in discharge including
Final examination of the patient
Summarizing hospital stay
Instructions for continuing care to all relevant caregivers
Preparation of discharge records, prescriptions, and referral forms
Total time spent (in minutes): 37
Anticipated Discharge: Today
Subjective/Interval History
-
Date of Service: February 25, 2025
No acute events
Objective Data
-
Labs:
Laboratory Results
02/25/25
08:53
WBC 7.8
Hgb 9.1 L
Hct 28.7 L
Plt Count 184
Sodium 142
Potassium 4.7
Chloride 113 H
Carbon Dioxide 20 L
BUN 29 H
Creatinine 1.4 H
Glucose 91
Calcium 7.6 L
Total Bilirubin 0.6
AST 25
ALT 17
Alkaline Phosphatase 103
Vital Signs:
Vital Signs
Temp Pulse Resp BP Pulse Ox
97.6 F 66 16 142/78 97
02/25/25 07:00 02/25/25 07:00 02/25/25 07:00 02/25/25 07:00 02/25/25 07:00
I&O
02/24/25 02/25/25 02/26/25
06:59 06:59 06:59
Intake Total 660 / 660 750 / 750
Balance 660 / 660 750 / 750
Review of Systems
-
History Source: Patient
All other systems: Not reviewed unless documented
Data Reviewed
-
Diagnostic Radiology: Report Reviewed by me
CT Scan: Report Reviewed by me
MRI: Report Reviewed by me
Labs: Labs Reviewed by me
[2025-02-25] MEDS: LR 1000 IV (13:03)
--- NOTE | 2025-02-25 16:29 | CON.ID ---
Consultation
-
Date/Time Consultation Requested: February 25, 2025 1317
Date/Time Consultation Performed: February 25, 2025 1630
Requesting Provider: Dr. Jarrell Mejia
Performing Provider: Dr. Sherlyn Spear
Reason for Consultation: Klebsiella bacteremia
Chief Complaint / Past History
Chief Complaint
Fever and chills
History of Present Illness
84-year-old female with remote history of pancreatic cancer status post chemoradiation and Whipple's 25 years ago, hiatal hernia, history of esophageal stricture requiring dilation, GJ ulcer who presented to the hospital on February 23 due to fevers
and shaking chills. She reports not feeling well 5 days prior to admission. She was weak, tired and slept a lot. Was having intermittent fevers which became more frequent. Chills also came more frequent and worse. Positive nausea without
vomiting. Positive mild upper mid abdominal pain. She did call her GI physician at [place] who scheduled her for endoscopy this week but she decided to come to the hospital instead. She has chronic diarrhea unchanged. No dysuria, urgency,
frequency, or flank pain. No cough. Recently she has been experiencing intermittent dysphagia with solid foods. Denies aspiration. In the ED temperature 101.2. Urine analysis negative. COVID/influenza negative. Blood cultures x 2 positive for
Klebsiella pneumoniae. Chest x-ray no infiltrates. She is currently on Zosyn. She is feeling better while in the hospital. No further epigastric pain. Chills have resolved.
Past History
Additional Past Medical History:
COPD.
Hypertension.
Hypothyroidism
Moderate to large Hiatal hernia
Hx esophageal stricture s/p dilation
GERD.
Hypertension
h/o GJ ulcer
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
Thyroid cancer s/p thyroidectomy
Chronic diarrhea
History of right hip fracture ORIF
Allergy History:
No Known Allergies Allergy (Unverified 02/23/25 09:40)
Medications Reviewed: Yes
Current Antibiotics:
Zosyn day 3
Social History
Tobacco: Former Smoker
Alcohol: None
Drug: None
Personal:
Living: Alone
Family History
Family History: Not Pertinent
Review of Systems
Review of Systems
General: Fever, Chills and Change in Appetite
HEENT: Negative Stiff Neck, Sinus Problems, Headache or Pharyngitis
Cardiovascular: Negative Chest Pain, Dyspnea or Edema
Respiratory: Negative Dyspnea, Cough or Sputum Production
Gasteroenterology: Nausea and Diarrhea (chronic stable); Negative Vomiting
Genital / Urological: Negative Dysuria, Hematuria or Flank Pain
Endocrine: Weakness
Musculoskeletal: Negative Arthralgias
Skin / Hair / Nails: Negative Rash
Neurological: Negative Dizziness
All systems: All other systems were reviewed and were negative
Vital Signs
Temp Pulse Resp BP Pulse Ox
97.8 F 70 16 163/82 96
02/25/25 11:00 02/25/25 11:00 02/25/25 11:00 02/25/25 11:00 02/25/25 11:00
Selected Entries
02/23/25
10:40 02/23/25
19:17
Temp 101.2 F H 100.4 F H
Physical Exam
Physical Exam
Constitutional: No Acute Distress and Comfortable
Head: Other (No frontal or maxillary sinus tenderness)
Eyes: No Conjunctival Hemorrhage and Sclera Anicteric
Cardiovascular: Regular Rate and S1/S2
Pulmonary: Clear
Gastrointestinal: Soft, Non Tender, Non Distended and Normal Bowel Sounds
Genito-Urinary: Negative Suprapubic Tenderness or CVA Tenderness
Extremities: Negative Edema
Skin: Negative Jaundice
Neurological: AO x 3
Lab / Diagnostic Study Results
02/25/25 08:53
02/25/25 08:53
Abs Immat Gran (auto) 0.0 10^3/uL (0-0.05) 02/24/25 07:00
Absolute Neuts (auto) 5.2 10^3/uL (1.4-6.5) 02/24/25 07:00
Absolute Lymphs (auto) 0.5 10^3/uL (1.2-3.4) L 02/24/25 07:00
Absolute Monos (auto) 0.6 10^3/uL (0.1-0.6) 02/24/25 07:00
Absolute Basos (auto) 0.0 10^3/uL (0-0.2) 02/24/25 07:00
Immature Gran % 0.5 % (0-0.5) 02/24/25 07:00
Neutrophils % 81.1 % (42.2-75.2) H 02/24/25 07:00
Lymphocytes % 7.8 % (20.5-51.1) L 02/24/25 07:00
Monocytes % 9.5 % (1.7-9.3) H 02/24/25 07:00
Eosinophils % 0.6 % (0-6) 02/24/25 07:00
Basophils % 0.5 % (0-2) 02/24/25 07:00
Lactic Acid Cancelled 02/23/25 17:54
Microbiology Results
Micro:
02/24/25 13:05 Blood Culture - Preliminary
Blood/Venous No Growth in 24 hours- Final report to follow
02/25/25 12:42 Blood Culture - Pending
Blood/Venous
02/23/25 10:41 Blood Culture - Preliminary
Blood/Venous Klebsiella pneumoniae
Gram Stain - Final
02/23/25 10:41 Blood Culture - Preliminary
Blood/Venous Klebsiella pneumoniae group
Gram Stain - Final
02/24/25 MRI abd: Motion limited exam. Severe intrahepatic ductal dilatation in the left lobe of the liver. Two ovoid low signal intensity filling defects in the central left hepatic duct raising suspicion for intrahepatic gallstones
(hepatolithiasis). Intrahepatic pneumobilia could have a similar MRI appearance. Previous Whipple procedure.
02/23/25 CT a/p: Post Whipple procedure. There is new marked intrahepatic biliary dilation in the left lobe of the liver, suggesting that the patient's fever is most likely related to cholangitis.
2. Right lower lobe 7 mm nodule, larger as compared with 3 mm prior. Given the interval change in size, at least somewhat suspicious for malignancy. Given the relatively small amount of growth over five-year interval, an inflammatory etiology is
also possible.
3. Bilateral renal cortical scarring. Asymmetric atrophic changes of the right kidney as compared with the left.
4. Material with the appearance of stool throughout the distal small bowel compatible with significant degree of slow transit.
5. Advanced aortoiliac atherosclerotic changes.
6. Numerous chronic appearing compression deformities of thoracic and lumbar spine as above. Probable chronic posttraumatic deformity left iliac wing.
02/23/25 CXR: No acute pulmonary process identified.
Assessment / Plan
# Cholangitis due to biliary obstruction
# Klebsiella pneumoniae bacteremia (3 of 4 bottles)
# Fever resolved
# hx pancreatic ca s/p chemo/XRT, Whipple 25 years ago
- UA neg, COVID/Flu neg. CXR neg.
- Repeat blood cx's x2 negative to date.
- CT a/p shows new marked meli dil.
- MRI abd wo and w contrast: severe intrahepatic ductal dilatation in the left lobe of the liver. Two ovoid low signal intensity filling defects in the central left hepatic duct.
- Biliary obstruction can occur despite normal bili, transaminases especially insetting of previous biliary surgery history.
- Agree with transfer to tertiary center for ERCP to eval for strictures, sludge/debris, stones, etc.
- Can continue Zosyn for now. Will de-escalate abx when final cx data available.
# Recent intermittent dysphagia with solids
- pt with history of esophageal stricture
- Also h/o GJ (?anastomotic) ulcer
- May warrant upper endoscopy
Care Review
Plan reviewed with: Physician (Dr. Mejia)
[2025-02-25 17:10] VITALS: BP 176/91
[2025-02-25 19:33] VITALS: BP 145/78
--- NOTE | 2025-02-25 23:45 | W.PN.UPDATE ---
Update Note
Progress Note Update
Reported by the nursing staff that the patient had brown color bm with red color around it. Per staff, patient had red jello today. Patient currently on PPI IV BID. Followed by GI. Vital signs within normal limits.
-Stat H&H 8.5 previously 9.1.
-Will monitoring vital signs, h&H and check hemetest to confirm.
[2025-02-25 23:55] VITALS: BP 143/71
--- NOTE | 2025-02-25 23:55 | PTCARENOTE ---
Pt with brown stool with red around it. Pt denies hemorrhoids, [employer]AR[employer]CTION [employer] aware. stat H+H HGB 8.5. Care is ongoing.
[2025-02-25 23:59] LABS: Hematocrit 26.0 % (37.0-47.0); Hemoglobin 8.5 g/dL (12.0-16.0)
[2025-02-26 00:10] VITALS: BP 143/71
[2025-02-26] MEDS: LR 1000 IV (02:17)
[2025-02-26 03:05] VITALS: BP 147/80
[2025-02-26] MEDS: ZOSYN 50 IV ×2 (04:14→09:26)
[2025-02-26] MEDS: SYNTHROID 150 MCG PO (04:55)
[2025-02-26] MEDS: ATIVAN 0.5 MG PO ×2 (04:55→12:29)
[2025-02-26 07:00] VITALS: BP 165/95
[2025-02-26 08:28] LABS: Hematocrit 27.3 % (37.0-47.0); Hemoglobin 8.7 g/dL (12.0-16.0); Mean Corp Hgb Conc. 31.9 g/dL (33.0-37.0); Mean Corpuscular Volume 88.6 fL (81.0-99.0); Platelet Count 190 10^3/uL (130-400); Red Cell Dist. Width 14.6 % (11.5-14.5)
--- NOTE | 2025-02-26 08:50 | CM ---
Addendum entered by Zhanna Ness 02/26/25 15:23:
Spring from the [place] transfer center notified patient will not be transferred from [place] and procedure will be scheduled outpatient.
Addendum entered by Zhanna Ness 02/26/25 13:18:
Per MD documentation and verification through TT, authorization can be cancelled for [place] transfer.
TC to Grover Goss at [facility] and auth request cancelled.
Addendum entered by Zhanna Ness 02/26/25 10:19:
TCB from [facility], p#[phone], Amelie is off today. Per Rudi she can see the pended auth in [employer]. 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
Original Note:
Left VM for [facility] contact Amelie, await TCB re transfer authorization.
[2025-02-26 09:11] LABS: ALT (SGPT) 17 U/L (0-35); AST (SGOT) 25 U/L (14-36); Albumin 2.9 g/dl (3.5-5.0); Alkaline Phosphatase 109 U/L (38-126); Blood Urea Nitrogen 17 mg/dl (7-17); Calcium 7.5 mg/dl (8.4-10.2); Carbon Dioxide 21 mmol/L (22-30); Chloride 112 mmol/L (98-107); Estimated Creatinine Clearance 26 ml/min; Glucose 98 mg/dl (70-99); Potassium 3.9 mmol/L (3.5-5.1); Sodium 138 mmol/L (135-145); Total Protein 5.5 g/dl (6.3-8.2); eGFR 45.19
[2025-02-26] MEDS: HEPARIN 5000 UNITS SC ×2 (09:24→20:27)
[2025-02-26] MEDS: ZENPEP DELAYED RELEASE CAPSULE PO (09:24)
[2025-02-26] MEDS: PROTONIX IV 40 MG IV ×2 (09:25→20:27)
[2025-02-26] MEDS: NSS (PRESERVATIVE FREE) 10 ML IV ×2 (09:25→20:27)
[2025-02-26] MEDS: LEXAPRO 20 MG PO (09:26)
[2025-02-26] MEDS: CARAFATE 1 GRAM PO (09:27)
[2025-02-26] MEDS: THERAGRAN 1 TABLET PO (09:27)
[2025-02-26] MEDS: FLAGYL 500 MG PO ×2 (10:16→20:26)
--- NOTE | 2025-02-26 11:16 | W.PN.ID1 ---
Addendum entered and electronically signed by Sherlyn Spear MD 02/26/25 15:20:
Per GI transfer to [facility] cancelled, no urgent need for ERCP per [facility]. ERCP in 3 weeks. Can transition to Augmentin 875mg po bid through 03/08. At time of ERCP, recommend prophylactic Augmentin 875mg po bid x 3days; start the day before procedure.
Discussed with Napoleon Hoff and Bradley
Original Note:
Date of Service
Date of Service: February 26, 2025
Today's Communication
De-escalate Zosyn to ceftriaxone 2g IV q24 and metronidazole 500mg po bid.
After ERCP/source control, can transition to Augmentin 875mg po bid x 7 more days.
Assessment / Plan
# Cholangitis due to biliary obstruction
# Klebsiella pneumoniae bacteremia (3 of 4 bottles)
# Fever resolved
# hx pancreatic ca s/p chemo/XRT, Whipple 25 years ago
- UA neg, COVID/Flu neg. CXR neg.
- Repeat blood cx's x2 negative to date.
- CT a/p shows new marked meli dil.
- MRI abd wo and w contrast: severe intrahepatic ductal dilatation in the left lobe of the liver. Two ovoid low signal intensity filling defects in the central left hepatic duct.
- Although uncommon, biliary obstruction can occur despite normal bili, transaminases especially insetting of previous biliary surgery history.
- Awaiting transfer to tertiary center for ERCP to eval for strictures, sludge/debris, stones, etc.
- De-escalate Zosyn to ceftriaxone 2g IV q24 and metronidazole 500mg po bid.
- After ERCP/source control, can transition to Augmentin 875mg po bid x 7 more days.
# Recent intermittent dysphagia with solids
# Brown stool surrounded by blood vs consumed red jello last night
# History of esophageal stricture
# h/o GJ (?anastomotic) ulcer
- May warrant upper endoscopy
- Monitoring H/H
- Management as per GI and Hospitalist
# Conditions present on admission
COPD.
Hypertension.
Hypothyroidism
Moderate to large Hiatal hernia
Hx esophageal stricture s/p dilation
GERD.
Hypertension
h/o GJ ulcer
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
Thyroid cancer s/p thyroidectomy
Chronic diarrhea
History of right hip fracture ORIF
Chief Complaint
-: Bacteremia
Subjective / Review of Systems
Upset she is npo while awaiting bed at [facility].
Overall feeling better.
Vital Signs / Physical Exam
Vital Signs
Vital Signs
Temp Pulse Resp BP Pulse Ox
98.1 F 81 16 165/95 95
02/26/25 07:00 02/26/25 07:00 02/26/25 07:00 02/26/25 07:00 02/26/25 07:00
Physical Exam
Constitutional: No Acute Distress and Comfortable
Eyes: No Conjunctival Hemorrhage and Sclera Anicteric
Cardiovascular: Regular Rate and S1/S2
Pulmonary: Clear
Gastrointestinal: Soft, Non Tender, Non Distended and Normal Bowel Sounds
Extremities: Negative Edema
Neurological: AO x 3
Objective Data
Lab Data
Lab Results
02/26/25 07:52
Estimated Creat Clear 26 ml/min 02/26/25 07:52
Lactic Acid Cancelled 02/23/25 17:54
Total Bilirubin 0.6 mg/dl (0.2-1.3) 02/26/25 07:52
AST 25 U/L (14-36) 02/26/25 07:52
ALT 17 U/L (0-35) 02/26/25 07:52
Alkaline Phosphatase 109 U/L (38-126) 02/26/25 07:52
Most recent labs reviewed.
Micro Results:
02/23/25 10:41 Blood Culture - Final
Blood/Venous Klebsiella pneumoniae
Gram Stain - Final
02/23/25 10:41 Blood Culture - Final
Blood/Venous Klebsiella pneumoniae
Gram Stain - Final
02/24/25 13:05 Blood Culture - Preliminary
Blood/Venous No Growth in 24 hours- Final report to follow
02/25/25 12:42 Blood Culture - Pending
Blood/Venous
02/24/25 MRI abd: Motion limited exam. Severe intrahepatic ductal dilatation in the left lobe of the liver. Two ovoid low signal intensity filling defects in the central left hepatic duct raising suspicion for intrahepatic gallstones
(hepatolithiasis). Intrahepatic pneumobilia could have a similar MRI appearance. Previous Whipple procedure.
02/23/25 CT a/p: Post Whipple procedure. There is new marked intrahepatic biliary dilation in the left lobe of the liver, suggesting that the patient's fever is most likely related to cholangitis.
2. Right lower lobe 7 mm nodule, larger as compared with 3 mm prior. Given the interval change in size, at least somewhat suspicious for malignancy. Given the relatively small amount of growth over five-year interval, an inflammatory etiology is
also possible.
3. Bilateral renal cortical scarring. Asymmetric atrophic changes of the right kidney as compared with the left.
4. Material with the appearance of stool throughout the distal small bowel compatible with significant degree of slow transit.
5. Advanced aortoiliac atherosclerotic changes.
6. Numerous chronic appearing compression deformities of thoracic and lumbar spine as above. Probable chronic posttraumatic deformity left iliac wing.
02/23/25 CXR: No acute pulmonary process identified.
[2025-02-26 11:45] VITALS: BP 171/81
--- NOTE | 2025-02-26 11:58 | W.PN.HOSP.TC ---
Today's Communication/Plan
-
Start her on diet
cw abx
DC planning
Assessment / Plan
Assessment / Plan
#Sepsis
#Bacteremia, Klebsiella
�Suspected source includes biliary history of Whipple's /biliary ductal dilatation noted on the MRI/MRCP.
� Follow-up MRI/MRCP: intrahepatic filling defects.
� Continue antibiotics
� Follow-up cultures pending
� Continue PPI twice daily
�Trend LFTs
� Currently n.p.o. per GI.
� ID following.
� Accepted for transfer to [place] for ERCP due to not having capabilities here for endoscopic removal of stones
#Dysphagia to solids
-Patient reports chronic sensation of food getting stuck,
-Was scheduled for endoscopy in 4 days at [place] with a GI doc
-Speech eval on hold pending GI workup
-CLD
#Right lower lobe 7 mm nodule, larger as compared with 3 mm prior.
- Given the interval change in size, at least somewhat suspicious for malignancy.
-Given the relatively small amount of growth over five-year interval, an inflammatory etiology is also possible.
-F/u outpatient
#GERD
-PPI twice daily
#Chronic anemia
-Monitor Hgb Level
-Transfuse for Hgb <7
#Hypertension
�Hold antihypertensives for today while n.p.o.
#Hypothyroidism
-Continue levothyroxine
#Anxiety
-Continue citalopram, lorazepam as needed
#Chronic compression fractures and kyphosis
CODE STATUS full code
DVT prophylaxis heparin subcu
Call placed to transfer center-no bed available yet.
Discussed with GI today -she spoke with the GI team at [facility]-no indication for emergent ERCP. Plan is to feed her, follow for stability for discharge and arrange ERCP as an outpatient.
Total time spent on today's encounter was 52 minutes which included time spent in counseling the patient/family regarding diagnosis and treatment plan as listed above, goals of care, and symptom management. Case was discussed with nursing staff,
specialists, and care coordinators/case management. All labs and imaging personally reviewed by me. Remainder the time spent in detailed review of previous records, lab data, imaging, and other medical provider documentation.
Anticipated Discharge: 24 - 48 hours
Subjective/Interval History
-
Date of Service: February 26, 2025
No fever or chills further.
Denies any nausea. Denies any abdominal pain.
No shortness of breath, chest pain or lightheadedness.
Objective Data
-
Labs:
Laboratory Results
02/25/25 02/26/25 02/26/25
23:52 07:52 11:47
WBC 7.4
Hgb 8.5 L 8.7 L Pending
Hct 26.0 L 27.3 L Pending
Plt Count 190
Sodium 138
Potassium 3.9
Chloride 112 H
Carbon Dioxide 21 L
BUN 17
Creatinine 1.2 H
Glucose 98
Calcium 7.5 L
Total Bilirubin 0.6
AST 25
ALT 17
Alkaline Phosphatase 109
02/26/25
18:00
WBC
Hgb Pending
Hct Pending
Plt Count
Sodium
Potassium
Chloride
Carbon Dioxide
BUN
Creatinine
Glucose
Calcium
Total Bilirubin
AST
ALT
Alkaline Phosphatase
Vital Signs:
Vital Signs
Temp Pulse Resp BP Pulse Ox
98.8 F 69 16 171/81 96
02/26/25 11:45 02/26/25 11:45 02/26/25 11:45 02/26/25 11:45 02/26/25 11:45
I&O
02/25/25 02/26/25 02/27/25
06:59 06:59 06:59
Intake Total 750 / 750 2084
Balance 750 / 750 2084
Physical Exam
-
General: No Apparent Distress
HEENT: Moist Mucous Membranes
Respiratory: Clear to Auscultation and Non Labored Respirations; Negative Accessory Resp Muscle Use
Cardiac: Regular Rhythm and S1/S2; Negative Tachycardic
GI: Soft and Nontender
Neuro: AO x 3
Psych: Calm; Negative Confused
Data Reviewed
-
Labs: Labs Reviewed by me
[2025-02-26 12:04] LABS: Hematocrit 31.1 % (37.0-47.0); Hemoglobin 9.7 g/dL (12.0-16.0)
[2025-02-26] MEDS: ZENPEP DELAYED RELEASE CAPSULE 3 CAPSULE PO ×2 (12:28→17:22)
--- NOTE | 2025-02-26 13:34 | W.PN.GI.CBS2 ---
Today's Communication / Plan
-
outpatient ercp, antibiotics
Assessment / Plan
-
84 yo pmh Ekta presenting for fever, CT with intrahepatic meli dil but LFTs normal and no RUQ pain however + Kleb.
MRI with intrahepatic filling defects.
Bili remains normal, no pain - atypical to have normal bilirubin if obstructed. However, CXR, urine studies unrevealing no other source.
Appreciate ID consult - feel the intrahepatic stones cause of bacteremia.
I spent extensive time in discussion with [facility], our advanced GI team, hospitalist, ID, IR. Decision was no need for ERCP or PTC because patient's LFTs have been totally normal which is not consistent with obstruction. My advanced
GI recommended ERCP in a few weeks ([facility] recommended no ERCP this admission). Infection has also resolved as blood cultures are now negative and no fevers since Wednesday. I reviewed this with the patient and daughter.
Continue Zosyn - antibiotics per ID
They also recommend 1 day of augmentin prior to ERCP.
Continue pantoprazole 40 - can go down to daily.
Regular diet.
I sent a msg to set up ERCP outpatient with Dr. Marion.
GI will sign off please call with ?s.
Total Time Spent with Patient (in minutes): 50 min
Subjective
Subjective
Date of Service: February 26, 2025
no pain, no fevers
Objective
Data Reviewed
Laboratory Data:
Laboratory Results
02/26/25 07:52
Laboratory Results
Magnesium 1.7 mg/dl (1.6-2.3) 02/24/25 07:00
Total Bilirubin 0.6 mg/dl (0.2-1.3) 02/26/25 07:52
AST 25 U/L (14-36) 02/26/25 07:52
ALT 17 U/L (0-35) 02/26/25 07:52
Alkaline Phosphatase 109 U/L (38-126) 02/26/25 07:52
Vital Signs and I&O:
Vital Signs
Temp Pulse Resp BP Pulse Ox
98.8 F 69 16 171/81 96
02/26/25 11:45 02/26/25 11:45 02/26/25 11:45 02/26/25 11:45 02/26/25 11:45
I&O
02/25/25 02/26/25 02/27/25
06:59 06:59 06:59
Intake Total 750 / 750 2084
Balance 750 / 750 2084
Physical Exam
Physical Exam
GI: Non Distended and Non Tender
[2025-02-26] MEDS: ROCEPHIN 2000 MG IV (14:19)
[2025-02-26] MEDS: STERILE WATER FOR INJECTION 20 ML IV (14:19)
[2025-02-26] MEDS: FLUSH (NSS) 1 FLUSH IV ×2 (14:23→14:28)
[2025-02-26 15:36] VITALS: BP 149/69
[2025-02-26] MEDS: LR IV (16:08)
[2025-02-26 23:40] VITALS: BP 152/72
[2025-02-27] MEDS: ZENPEP DELAYED RELEASE CAPSULE 3 CAPSULE PO ×2 (06:30→11:44)
[2025-02-27] MEDS: SYNTHROID 150 MCG PO (06:30)
[2025-02-27] MEDS: ATIVAN 0.5 MG PO (06:35)
[2025-02-27 07:59] LABS: Hematocrit 26.6 % (37.0-47.0); Hemoglobin 8.3 g/dL (12.0-16.0); Mean Corp Hgb Conc. 31.2 g/dL (33.0-37.0); Mean Corpuscular Volume 89.9 fL (81.0-99.0); Platelet Count 211 10^3/uL (130-400); Red Cell Dist. Width 14.5 % (11.5-14.5)
[2025-02-27 08:24] VITALS: BP 159/82
[2025-02-27] MEDS: HEPARIN 5000 UNITS SC (08:29)
[2025-02-27] MEDS: LEXAPRO 20 MG PO (08:29)
[2025-02-27] MEDS: PROTONIX IV 40 MG IV (08:29)
[2025-02-27] MEDS: NSS (PRESERVATIVE FREE) 10 ML IV (08:29)
[2025-02-27] MEDS: FLAGYL 500 MG PO (08:30)
[2025-02-27] MEDS: THERAGRAN 1 TABLET PO (08:30)
[2025-02-27] MEDS: CARAFATE 1 GRAM PO (08:30)
[2025-02-27 08:42] LABS: ALT (SGPT) 18 U/L (0-35); AST (SGOT) 24 U/L (14-36); Albumin 3.0 g/dl (3.5-5.0); Alkaline Phosphatase 99 U/L (38-126); Blood Urea Nitrogen 11 mg/dl (7-17); Calcium 7.8 mg/dl (8.4-10.2); Carbon Dioxide 22 mmol/L (22-30); Chloride 112 mmol/L (98-107); Estimated Creatinine Clearance 28 ml/min; Glucose 103 mg/dl (70-99); Potassium 3.8 mmol/L (3.5-5.1); Sodium 139 mmol/L (135-145); Total Protein 5.7 g/dl (6.3-8.2); eGFR 50.17
--- NOTE | 2025-02-27 10:57 | W.PN.ID1 ---
Date of Service
Date of Service: February 27, 2025
Today's Communication
Can transition to Augmentin.
See below.
Assessment / Plan
# Cholangitis due to biliary obstruction
# Klebsiella pneumoniae bacteremia (3 of 4 bottles)
# Fever resolved
# hx pancreatic ca s/p chemo/XRT, Whipple 25 years ago
- UA neg, COVID/Flu neg. CXR neg.
- Repeat blood cx's x2 negative to date.
- CT a/p shows new marked meli dil.
- MRI abd wo and w contrast: severe intrahepatic ductal dilatation in the left lobe of the liver. Two ovoid low signal intensity filling defects in the central left hepatic duct.
- [facility] declined transfer, no urgent need for ERCP.
- Plan for ERCP in 3 weeks.
- Can transition ceftriaxone 2g IV q24 and metronidazole 500mg po bid to Augmentin 875mg po bid through 03/08.
- At time of ERCP, recommend prophylactic Augmentin 875mg po bid x 3days; start the day before procedure.
# Recent intermittent dysphagia with solids
# History of esophageal stricture
# h/o GJ (?anastomotic) ulcer
- May warrant upper endoscopy outpt
# Conditions present on admission
COPD.
Hypertension.
Hypothyroidism
Moderate to large Hiatal hernia
Hx esophageal stricture s/p dilation
GERD.
Hypertension
h/o GJ ulcer
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
Thyroid cancer s/p thyroidectomy
Chronic diarrhea
History of right hip fracture ORIF
Chief Complaint
-: Bacteremia
Subjective / Review of Systems
Feels well.
Vital Signs / Physical Exam
Vital Signs
Vital Signs
Temp Pulse Resp BP Pulse Ox
97.9 F 68 16 159/82 97
02/27/25 08:24 02/27/25 08:24 02/27/25 08:24 02/27/25 08:24 02/27/25 08:24
Physical Exam
Constitutional: No Acute Distress and Comfortable
Cardiovascular: Regular Rate and S1/S2
Pulmonary: Clear
Gastrointestinal: Soft, Non Tender and Non Distended
Neurological: AO x 3
Objective Data
Lab Data
Lab Results
02/27/25 07:20
02/27/25 07:20
Estimated Creat Clear 28 ml/min 02/27/25 07:20
Lactic Acid Cancelled 02/23/25 17:54
Total Bilirubin 0.4 mg/dl (0.2-1.3) 02/27/25 07:20
AST 24 U/L (14-36) 02/27/25 07:20
ALT 18 U/L (0-35) 02/27/25 07:20
Alkaline Phosphatase 99 U/L (38-126) 02/27/25 07:20
Most recent labs reviewed.
Micro Results:
02/24/25 13:05 Blood Culture - Preliminary
Blood/Venous No Growth in 48 hours- Final report to follow
02/25/25 12:42 Blood Culture - Preliminary
Blood/Venous No Growth in 24 hours- Final report to follow
02/23/25 10:41 Blood Culture - Final
Blood/Venous Klebsiella pneumoniae
Gram Stain - Final
02/23/25 10:41 Blood Culture - Final
Blood/Venous Klebsiella pneumoniae
Gram Stain - Final
02/24/25 MRI abd: Motion limited exam. Severe intrahepatic ductal dilatation in the left lobe of the liver. Two ovoid low signal intensity filling defects in the central left hepatic duct raising suspicion for intrahepatic gallstones
(hepatolithiasis). Intrahepatic pneumobilia could have a similar MRI appearance. Previous Whipple procedure.
02/23/25 CT a/p: Post Whipple procedure. There is new marked intrahepatic biliary dilation in the left lobe of the liver, suggesting that the patient's fever is most likely related to cholangitis.
2. Right lower lobe 7 mm nodule, larger as compared with 3 mm prior. Given the interval change in size, at least somewhat suspicious for malignancy. Given the relatively small amount of growth over five-year interval, an inflammatory etiology is
also possible.
3. Bilateral renal cortical scarring. Asymmetric atrophic changes of the right kidney as compared with the left.
4. Material with the appearance of stool throughout the distal small bowel compatible with significant degree of slow transit.
5. Advanced aortoiliac atherosclerotic changes.
6. Numerous chronic appearing compression deformities of thoracic and lumbar spine as above. Probable chronic posttraumatic deformity left iliac wing.
02/23/25 CXR: No acute pulmonary process identified.
[2025-02-27] MEDS: FLUSH (NSS) 1 FLUSH IV ×2 (14:05→14:06)
[2025-02-27] MEDS: ROCEPHIN 2000 MG IV (14:06)
[2025-02-27] MEDS: STERILE WATER FOR INJECTION 20 ML IV (14:06)
--- NOTE | 2025-02-27 14:30 | PTCARENOTE ---
Patient ambulated well in hallway without an assistive device. No complaints of dizziness or lightheadedness.
--- NOTE | 2025-02-27 14:35 | W.DCSUMMARY ---
Discharge Summary
Discharge Data
Date of Admission: 02/23/25
Date of Discharge: 02/27/25
-
Pending Results: No
Hospital Course
Primary diagnosis:
Sepsis
Klebsiella pneumonia bacteremia
Severe intrahepatic ductal dilatation in the left lobe of the liver
Hepatolithiasis [intrahepatic gallstones]
Right pulmonary lower lobe 7 mm nodule, larger as compared with 3 mm prior.
Secondary diagnosis:
History of Whipple procedure
Gastroesophageal reflux disease
History of chronic anemia
Essential hypertension
Hypothyroidism
Hospital course:
Patient presented with fever and discovered to have sepsis on she was bacteremic with Klebsiella pneumonia. Initial CT of the abdomen pelvis raises concern for cholangitis because of severe ductal dilatation of biliary system and then she went on
to have an MRI of the abdomen which showed-
Severe intrahepatic ductal dilatation in the left lobe of the liver. Two ovoid low signal intensity filling defects in the central left hepatic duct raising suspicion for intrahepatic gallstones (hepatolithiasis). Intrahepatic pneumobilia could have
a similar MRI appearance.
Previous Whipple procedure.
Interestingly her LFTs were normal on admission and remained normal so during the admission. There was initial thoughts about transferring her to [facility] for ERCP. GI discussed with advanced GI team at [facility], with
the normal LFTs and no GI symptoms and no abdominal tenderness it was felt appropriate to continue with antibiotics and arrange an ERCP as an outpatient locally here by Dr. Marion. She cleared her bacteriuria with ceftriaxone and Flagyl. She was seen
by ID who recommended Augmentin till 03/08/2025. ID also recommended 3 days periprocedural Augmentin when ERCP is planned.
There was a incidental right pulmonary lung nodule as above which needs to be followed with repeat CT chest in 3-6 months. Given the relatively small amount of growth of the lung nodule over the 5-year interval and implement etiologies also
possible but she has no respiratory symptoms currently.
Today patient without any specific symptom. She is afebrile, pulse 68, blood pressure 159/82. Nontoxic. Abdomen benign. Chest clear.
Deemed medically stable for discharge home today.
Consultants on board:
ID-Sherlyn Otero
GI-Chalino Bennett
Discharge Plan
-
Patient Disposition: Home (Routine Discharge)
Discharge Diagnosis/Procedures:
#Sepsis
#Klebsiella pneumoniae Bacteremia
# intrahepatic ductal dilatation with normal LFTs
�Suspected source includes biliary history of Whipple's
Condition: Fair
Diet: Regular
Activity: As tolerated
Driving Restrictions: As prior to admission
Bathing Restrictions: None
Blood Work: CBC , CMP in one week -arrange through your PCP
Referrals:
Lawrence Tillman DO [Family Provider, Family Practice] - in less than 1 week
Chalino Hoff MD [Active, Gastroenterology] - in two to four weeks
Referral Note: Call for ERCP procedure schedule if you dont hear from their office
Additional Discharge Medication Instructions: Take Augmentin twice a day till 03/08/25 ; take it again one day before the ERCP procedure and for 2 days after the procedure
Prescriptions:
New
amoxicillin-pot clavulanate 875-125 mg tablet
1 tab PO BID Qty: 30 0RF
Continued
lorazepam 0.5 MG tablet
0.5 mg PO TIDPRN PRN (Reason: anxiety)
multivitamin with folic acid [Tab-A-Roberth] 1 TABLET tablet
1 tab PO DAILY
levothyroxine 150 MCG tablet
150 mcg PO DAILY
escitalopram oxalate 20 MG tablet
20 mg PO DAILY
Prolia 60 MG/ML syringe
60 mg SQ [id number]
sucralfate 1 GRAM tablet
1 g PO DAILY
Rx Instructions:
1 gram PO TID for 2 weeks, then at least once daily indefinitely.
benazepril-hydrochlorothiazide 20-12.5 mg Tablet
1 tab PO DAILY
omeprazole 40 mg Capsule,Delayed Release(Dr/Ec)
40 mg PO BID
Creon 36,000-114,000- 180,000 unit Capsule,Delayed Release(Dr/Ec)
3 cap PO AC
Creon 36,000-114,000- 180,000 unit Capsule,Delayed Release(Dr/Ec)
1 cap PO DAILYPRN PRN (Reason: with snacks)
Discharge Orders:
Discharge Patient (As Directed); Ordered 02/27/25
Ordered By: Fredo Huerta
Discharge Date and Time
Print Language: MOSOTHO
[2025-02-27 15:02] VITALS: BP 160/89
--- NOTE | 2025-02-27 15:14 | CM ---
Patient for d/c today
Met w/ patient and daughter bedside, agreeable to d/c
IMM verbally reviewed, copy provided, copy on chart
No needs identified at this time
Plan: Home, no needs
== END 2025-02-27 15:35 | disposition home or self-care (01) | DRG 871 ==
LOC: 4 EAST ACU 18:16
PROVIDERS: Internal Medicine; Nurse Practitioner Family; Registered Nurse; Student in an Organized Health Care Education/Training Program; ADMITTING PHYSICIAN Internal Medicine; ATTENDING PHYSICIAN Internal Medicine; CONSULT PHYSICIAN Internal Medicine Gastroenterology; CONSULT PHYSICIAN Internal Medicine Infectious Disease; EMERGENCY PHYSICIAN Emergency Medicine; FAMILY PHYSICIAN Family Medicine
DX: A41.89 Other specified sepsis (principal); K83.1 Obstruction of bile duct; K83.09 Other cholangitis; C25.9 Malignant neoplasm of pancreas, unspecified; M48.50XA Collapsed vertebra, not elsewhere classified, site unspecified, initial encounter for fracture; B96.1 Klebsiella pneumoniae [K. pneumoniae] as the cause of diseases classified elsewhere; Z90.411 Acquired partial absence of pancreas; K21.9 Gastro-esophageal reflux disease without esophagitis; D64.9 Anemia, unspecified; I10 Essential (primary) hypertension; E89.0 Postprocedural hypothyroidism; R91.1 Solitary pulmonary nodule; F41.9 Anxiety disorder, unspecified; Z79.890 Hormone replacement therapy; Z85.07 Personal history of malignant neoplasm of pancreas; Z92.3 Personal history of irradiation; Z92.21 Personal history of antineoplastic chemotherapy; K44.9 Diaphragmatic hernia without obstruction or gangrene; K22.2 Esophageal obstruction; K52.9 Noninfective gastroenteritis and colitis, unspecified; Z90.49 Acquired absence of other specified parts of digestive tract; Z87.891 Personal history of nicotine dependence; M40.209 Unspecified kyphosis, site unspecified; R13.10 Dysphagia, unspecified; Z85.850 Personal history of malignant neoplasm of thyroid; Z11.52 Encounter for screening for COVID-19
CPT/HCPCS: 71046; 74177; 74183; 80053; 81003; 83605; 83735; 85014; 85018; 85025; 85027; 87040; 87077; 87154; 87186; 87205; 87811; 96361; 96365; 96375; 99285; A9575; Q9967

== ENCOUNTER 2025-03-07 16:09 | Inpatient (IN) | payer MEDICARE, SELFPAY ==
[2025-03-07] VITALS (7 sets, daily range): BP systolic 143–168; BP diastolic 64–117; BMI 20.2; BMI 20.1
--- NOTE | 2025-03-07 13:14 | ED.GENMED ---
History of Present Illness
General
Chief Complaint: Weakness
Source: patient and family (Daughter at bedside)
Exam Limitations: none
Time Seen by Provider: 03/07/25 12:43
Nursing documentation reviewed up to this point in time: agreed with
History of Present Illness
History of Present Illness:
Patient is an 84-year-old female with history of hypertension, history of pancreatic CA s/p Whipple, recent hospitalization for bacteremia suspected secondary due to acute cholangitis who presents to the emergency department with concerns of fever.
Patient was discharged from the hospital on 02/27/2025 and has since been feeling generally weak. She states that this past Wednesday she noticed subjective fevers and shaking chills. She has been losing a significant amount of weight and feels very
weak.
She denies any significant abdominal pain however does note an intermittent vague upper abdominal discomfort. She denies any urinary discomfort, chest pain, shortness of breath.
Patient was found to have intrahepatic biliary ductal dilation on CT imaging followed by MRCP which showed findings consistent with possible hepatic gallstones. She treated with IV antibiotics and Emergency Department discharge on oral antibiotics.
She had been taking them up until yesterday since she was experiencing diarrhea. She is scheduled for an outpatient ERCP with Dr. Marion on 03/21/2025.
Past History
Past History
ED Past Medical History: Cancer, GERD and HTN
ED Past Surgical History: Bowel resection (him him) and Orthopedic
Social History
Tobacco: Non-smoker
Alcohol: None
Drug: None
Personal:
Living: alone
Employment: Disabled
Family History
Family History: Hypertension
Review of Systems
Review of Systems
Allergies reviewed?: Yes
All Other Systems: ROS reviewed and negative except as documented in HPI and ROS
Phy Exam
Physical Exam
Physical Exam:
Vitals: Hypertensive, otherwise vital signs stable. Afebrile
General: Patient is in no apparent distress
Skin: Warm and dry, no rashes or lesions
Head: Normocephalic, atraumatic
Eyes: Sclera nonicteric. EOMs intact. No nystagmus.
Throat: Dry mucous membranes. Protecting airway
Neck: Normal ROM, no cervical spine tenderness, no meningismus
Cardiac: Regular rate and rhythm, no murmurs.
Pulm: Normal respiratory effort, no wheezes, rales, rhonchi heard on exam
Abdomen: Abdomen soft. Mild epigastric tenderness. No rebound tenderness or guarding.
Extremities: No evidence of cyanosis or edema
Neuro: AAOx3. Grossly intact.
Psychiatric: Normal affect.
Course
Orders/Labs/Results
Orders:
Orders
03/07/25 Breakfast
Clear Liquid
At Your Request: Limited Participation
03/07/25 13:14
0.9% Sodium Chloride 1000 ml [Nss] 1,000 ml IV BOLUS
03/07/25 13:31
Acetaminophen [Tylenol] 650 mg .ROUTE .STK-MED ONE
03/07/25 13:37
COVID-19 Antigen Urgent
Source: Nasal Swab
Complete Blood Count/With Diff Urgent
Comprehensive Metabolic Panel Urgent
Lactic Acid Q4H
Comment: CANCEL 2nd LACTIC ACID IF 1st LACTIC ACID IS LESS THAN 2
Urinalysis Reflex To Culture Urgent
Date Specimen was Collected: 03/07/25
Time Specimen was Collected: 13:22
Urine Microscopic Reflex Cult Urgent
Blood Culture Q30M
JEMAL Source: Blood/Venous
Specimen Description:
Urine Culture Urgent
JEMAL Source: U
Specimen Description:
Date Specimen was Collected: 03/07/25
Time Specimen was Collected: 13:22
Lorazepam [Ativan] 0.5 mg PO NOW STA
03/07/25 13:48
Blood Culture Q30M
JEMAL Source: Blood/Venous
Specimen Description:
03/07/25 13:50
Acetaminophen [Tylenol] 650 mg PO NOW STA
03/07/25 14:43
Piperacillin/Tazo 3.375 Gram [Zosyn] 3.375 gram in 50 ml IV NOW
03/07/25 15:09
CDIFF [C difficile Antigen & Toxins] Urgent
JEMAL Source: Feces/Stool
Specimen Description:
03/07/25 15:18
Vancomycin 1 Gram/200 ml [Vancocin] 1 gram in 200 ml IV NOW
03/07/25 15:45
Admit/Transfer Patient As Directed
Co-Sign Provider:
Level of Care: Inpatient admission
Assign to:: Telemetry
Physician / Group: Franca
Diagnosis: Sepsis
Reason for Telemetry: Arrhythmia
Date to Stop Telemetry: 03/10/25
Time to Stop Telemetry: 11:00
Reason for Hospitalization: IV abx
Expected length of stay greater than two midnights?: Yes
ELOS- Estimated Length of Stay in days: 3
I certify the patient meets the requirements for IP care: Yes
03/07/25 15:46
PRN Pain Medication Management As Directed
May give lesser potent ordered pain med per pt: Yes
preference::
Protocol:: Medication orders for pain may be administered in a
manner that supports deferring to patient preference
when the pt is:
- Requesting an ordered lesser potent pain medication.
Least to most potent pain medications are defined
as: acetaminophen < NSAID < tramadol < opioids
(morphine, oxycodone, hydromorphone).
- Requesting a lesser dose of the same medication IF
ORDERED.
- Requesting a less intrusive route of administration
if both routes are prescribed by the provider (PO <
IV).
03/07/25 15:49
Code Status As Directed
Resuscitation Status: Full Code
03/07/25 18:00
Acetaminophen [Tylenol] 650 mg PO Q4HPRN PRN
Lorazepam [Ativan] 0.5 mg PO TID
03/07/25 18:00
GASTROINTESTINAL CONSULT Routine
Consulting Provider: Elijah Camargo
Was physician already notified: Yes
Activity As Directed
Activity Level: Out of Bed-Early Mobility
With Assistance
I&O [Intake/ Output] As Directed
Frequency: q12h
Vital Signs As Directed
Frequency: Per unit guidelines
DX Deep Vein Thrombosis Video Routine
03/07/25 18:10
Pancrelipase [Zenpep Delayed Release Capsule] 1 capsule PO DAILYPRN PRN
03/07/25 20:00
Heparin 5,000 units SC Q12
Piperacillin/Tazo 2.25 Gram [Zosyn] 2.25 grams in 50 ml IV Q6H
03/08/25 06:00
Complete Blood Count/No Diff IN AM
Comprehensive Metabolic Panel IN AM
Levothyroxine [Synthroid] 150 mcg PO DAILY@0600
03/08/25 07:30
Pancrelipase [Zenpep Delayed Release Capsule] 3 capsule PO AC
03/08/25 08:00
Escitalopram Oxalate [Lexapro] 20 mg PO DAILY
Lisinopril [Zestril] 20 mg PO DAILY
03/10/25 11:00
DC Protocol for Telemetry ONCE
Abnormal Lab Results
03/07/25
13:37
WBC 12.5 H 10^3/uL
(4.8-10.8)
RBC 3.25 L 10^6/uL
(4.20-5.40)
Hgb 9.2 L g/dL
(12.0-16.0)
Hct 29.2 L %
(37.0-47.0)
MCHC 31.5 L g/dL
(33.0-37.0)
RDW 15.0 H %
(11.5-14.5)
Plt Count 465 H 10^3/uL
(130-400)
Abs Immat Gran (auto) 0.1 H 10^3/uL
(0-0.05)
Absolute Neuts (auto) 10.2 H 10^3/uL
(1.4-6.5)
Absolute Monos (auto) 0.8 H 10^3/uL
(0.1-0.6)
Immature Gran % 0.7 H %
(0-0.5)
Neutrophils % 81.9 H %
(42.2-75.2)
Lymphocytes % 10.4 L %
(20.5-51.1)
Creatinine 1.2 H mg/dL
(0.6-1.0)
Glucose 108 H mg/dl
(70-99)
Leukocyte Esterase Rfl 1+ A
(Negative)
Urine WBC (Reflex) 16-20 A /HPF
(0-5)
Urine Bacteria (Reflex) Few A
(Negative)
Urine Albumin (Reflex) 1+ A
(Neg - Trace)
03/07/25 13:37
03/07/25 13:37
Vital Signs
Temp: 100.2 F
Initial and Last Documented VS:
Initial Vital Signs
Temp Pulse Resp BP Pulse Ox
98.9 F 85 16 151/94 97
03/07/25 10:29 03/07/25 10:29 03/07/25 10:29 03/07/25 10:29 03/07/25 10:29
Last Documented Vital Signs
Temp Pulse Resp BP Pulse Ox
98.9 F 65 20 168/80 96
03/07/25 21:00 03/07/25 21:00 03/07/25 21:00 03/07/25 21:00 03/07/25 21:00
MDM/Problems Addressed
Differential Diagnosis Includes:
Not limited to: Sepsis, bacteremia, acute cholangitis, UTI, viral illness, acute dehydration, C.Diff, etc.
MDM/Problems Addressed:
84-year-old female presenting with fever and weakness over the past few days. Recent discharge from the hospital after admission for Klebsiella bacteremia possibly secondary to cholangitis. She�s not having any abdominal pain or vomiting. She is
scheduled for an outpatient ERCP in a few weeks. Vitals and exam as above. Patient has a temp of 100.2 on arrival. Physical exam as above. Patient generally weak appearing, however no distress. Abdomen soft with only very mild tenderness in upper
abdomen. Cardio/pulmonary assessment unremarkable.
Given recent hospitalization now with new fever � concern for recurring bacteremia. Lower suspicion for acute intra-abdominal infection given benign abdominal exam. Other considerations include UTI, viral illness, etc.
ED plan: labs, UA, cultures. Will give IV fluids and reassess.
Update: labs significant for a leukocytosis of 12.5 without any other clinically significant abnormalities. Lactic acid normal. Urine does not appear grossly infected. At this point � concern for recurrent bacteremia. Possible hepatic source with
suspected hepatolithiasis seen on MRCP during prior hospitalization. Patient may require ERCP.
Ultimately � will admit patient for IV antibiotics pending blood cultures and further management. Vanco / zosyn initiated in emergency department. Patient accepted to hospitalist service in stable condition. G.I. aware.
Chronic conditions affecting care:
Hypertension, history of pancreatic CA s/p Whipple procedure
Acute Exacerbation and/or Progression of Chronic Illness:
N/A
*Pulse Oximetry
SaO2: 97
Oxygen Mode of Delivery: Room air
Patient hypoxic: no
*EKG
Interpreted by ED Provider?: NA
*[employer] Interpretation
Rate: normal
Interpretation: normal
Heart Rate: 70
Rhythm: sinus
*Critical Care Note
Total Time (30-74mins, 75-104mins- exclusive of procedures): Not Applicable
Data Reviewed
Review of Other/Old Records Reveals: Discharge Summary (Discharge summary from 02/27/2025 after admission for sepsis secondary to Klebsiella bacteremia and concern for acute cholangitis-discharged on oral antibiotics)
Patient Management
Discussion with other providers: Hospitalist
Escalation/DeEscalation of care consider admission/obs:
Admit for antibiotics pending blood culture
ED Attending Note
-
Portions of this chart may have been created with voice recognition software.� Occasional wrong word or��sound alike� substitutions may have occurred due to the inherent limitations of voice recognition software.
Discharge Plan
Departure
Patient Disposition: Admit
Date of Disposition: 03/07/25
Time of Disposition: 14:56
Presentation/result/management discussed w/ accepting MD/DO: Hospitalist
Discharge Problem:
Fever, Generalized weakness
Interventions
Interventions:
*Risk Screen - Suicide Last Done: 03/07/25 19:57
*General Assessment Last Done: 03/07/25 13:57
*Neglect/Abuse Screening Last Done: 03/07/25 13:57
*ED- Fall Risk Assessment Last Done: 03/07/25 13:57
*ED COVID-19 Vaccine History Last Done: 03/07/25 19:57
*Nursing Disposition Last Done: 03/07/25 18:08
ED- Cardiac Assessment Last Done: 03/07/25 13:57
ED- Neurological Assessment Last Done: 03/07/25 13:57
ED- Pulmonary Assessment Last Done: 03/07/25 13:57
Discharge Date and Time
Discharge Date/Time: 03/07/25 18:08
[2025-03-07] MEDS: NSS 1000 IV (13:49)
[2025-03-07] MEDS: TYLENOL 650 MG PO (13:50)
[2025-03-07] MEDS: ATIVAN 0.5 MG PO ×2 (13:51→19:53)
[2025-03-07 14:06] LABS: Urine Character Clear (Clear)
[2025-03-07 14:12] LABS: ALT (SGPT) 13 U/L (0-35); AST (SGOT) 21 U/L (14-36); Albumin 3.8 g/dl (3.5-5.0); Alkaline Phosphatase 120 U/L (38-126); Blood Urea Nitrogen 17 mg/dl (7-17); Calcium 9.7 mg/dl (8.4-10.2); Carbon Dioxide 26 mmol/L (22-30); Chloride 104 mmol/L (98-107); Glucose 108 mg/dl (70-99); Potassium 4.4 mmol/L (3.5-5.1); Sodium 138 mmol/L (135-145); Total Protein 7.4 g/dl (6.3-8.2); eGFR 45.19
[2025-03-07 14:17] LABS: Urine Squamous Cell >30 /LPF (Few); Urine Urothelial Cell 0-2 /LPF (FEW)
[2025-03-07 14:18] LABS: Urine Red Blood Cell 0-2 /HPF (0-2); Urine White Cell 16-20 /HPF (0-5)
[2025-03-07 14:23] LABS: Hematocrit 29.2 % (37.0-47.0); Hemoglobin 9.2 g/dL (12.0-16.0); Mean Corp Hgb Conc. 31.5 g/dL (33.0-37.0); Mean Corpuscular Volume 89.8 fL (81.0-99.0); Nucleated Red Blood Cells % 0 %; Platelet Count 465 10^3/uL (130-400); Red Cell Dist. Width 15.0 % (11.5-14.5)
[2025-03-07 14:26] LABS: COVID-19 Antigen Negative (Negative)
[2025-03-07] MEDS: ZOSYN 50 IV ×2 (15:21→21:10)
--- NOTE | 2025-03-07 15:27 | HPS.HSE ---
Family Physician
-
Family Physician: Lawrence Tillman
Chief Complaint
-
Chills
History of Present Illness
Patient is an 84 y/o female past medical history of hypertension, pancreatic cancer s/p Whipple, and recent admission from February 23 for Klebsiella bacteremia thought to be from cholangitis in setting of severe intrahepatic duct dilation who
presents with chills. Patient reports she has not felt well since discharge. She reports persistent weakness and fatigue. She notes subjective fevers with shaking chills over the past few days. She notes some vague upper abdominal discomfort but
denies pain. She reports since they changed from the IV antibiotics to the oral Augmentin she has been experiencing diarrhea so she stopping taking the antibiotic this morning. She is scheduled to have an outpatient ERCP on March 21.
Medical History
Past Medical History
Past Medical History: Reports Other
Additional Past Medical History:
Essential Hypertension
CKD Stage III
Anxiety
Thyroid Cancer s/p Thyroidectomy
Pancreatic Cancer s/p Whipple
Past Surgical History: Reports Other
Additional Past Surgical History:
Thyroidectomy
Whipple Procedure
Cholecystectomy
Hiatal Hernia Repair
Social History
Tobacco: Non-smoker
Alcohol: None
Family History
Family History: Hypertension
Allergies / Home Medications
Allergies reflects when Allergies were last updated in [facility].
Home Medications with original date entered in [facility]
Allergy/Medication List:
Allergies
Allergy/AdvReac Type Severity Reaction Status Date / Time
No Known Allergies Allergy Unverified 03/07/25 10:33
Home Medications
lorazepam 0.5 mg tablet 0.5 mg PO TID 09/13/10
multivitamin with folic acid 400 mcg tablet (Tab-A-Roberth) 1 tab PO DAILY Supplement 09/13/10
denosumab 60 mg/mL subcutaneous syringe (Prolia) 60 mg SQ [id number] 04/01/20
escitalopram oxalate 20 mg tablet 20 mg PO DAILY Mental Health/Anxiety 04/01/20
levothyroxine 150 mcg tablet 150 mcg PO DAILY Thyroid 04/01/20
benazepril 20 mg-hydrochlorothiazide 12.5 mg tablet 1 tab PO DAILY Blood Pressure 02/23/25
dvymem-ixxfhigo-hlgjuxt 36,000-114,000-180,000 unit capsule,delay rel (Creon) 1 cap PO DAILYPRN PRN with snacks 02/23/25
nopwbi-ohisjgha-onxwpvh 36,000-114,000-180,000 unit capsule,delay rel (Creon) 3 cap PO AC Pancreas 02/23/25
omeprazole 40 mg capsule,delayed release 40 mg PO BID Gastrointestinal Issue 02/23/25
sucralfate 1 gram tablet 1 g PO DAILY Gastrointestinal Issue 02/23/25
amoxicillin 875 mg-potassium clavulanate 125 mg tablet 1 tab PO BID #30 tabs 02/27/25
Review of Systems
-
A 12 point ROS was completed and negative except as noted: Yes
Constitutional: Reports Fever, Weight Loss and Chills
Respiratory: Denies Cough or Trouble Breathing
Cardiac: Denies Chest Pain or Palpitations
Abdomen/GI: Reports See HPI
Physical Exam
Vital Signs
Vital Signs
Temp Pulse Resp BP Pulse Ox
100.2 F 69 26 143/117 97
03/07/25 13:29 03/07/25 14:45 03/07/25 14:45 03/07/25 14:00 03/07/25 14:45
Physical Exam
General: Comfortable and Conversant
HEENT: Anicteric and Moist mucous membranes
Respiratory: Clear and Non Labored Respirations; No Crackles
Cardiac: S1/S2 and Regular Rhythm
GI: Soft, Non Tender and Other (Slightly hyperactive bowel sounds)
Rectal: Deferred by Provider
Genito-urinary: Clear Urine
Musculoskeletal: No Clubbing, No Cyanosis and No Edema
Skin: Warm and Dry
Neuro: Awake, Alert, Oriented and Nonfocal/grossly intact
Psych: Calm
Laboratory Results
-
03/07/25 13:37
03/07/25 13:37
Laboratory Results
Lactic Acid Cancelled 03/07/25 17:15
Total Bilirubin 0.5 mg/dl (0.2-1.3) 03/07/25 13:37
AST 21 U/L (14-36) 03/07/25 13:37
ALT 13 U/L (0-35) 03/07/25 13:37
Alkaline Phosphatase 120 U/L (38-126) 03/07/25 13:37
Data Reviewed
-
Lab Data: Labs Reviewed by me
Old Records: Reviewed
Impression/Plan
-
Sepsis, clinical concern for recurrent bacteremia due to cholangitis
-Consult GI
-Continue Zosyn
-Await blood cultures and stool for C Diff
-Allow clear liquids
Essential Hypertension
-Continue lisinopril in place of benazepril
Hx Pancreatic Cancer s/p Whipple
-Continue Creon
Hx Thyroid Cancer s/p Thyroidectomy
-Continue Levothyroxine
Anxiety
-Continue lorazepam and escitalopram
CKD Stage III
-Creatinine at baseline
Chronic Anemia
-Hgb Stable
DVT proph: SC Heparin
Code Status: Full Code
[2025-03-07] MEDS: VANCOCIN 200 IV (16:08)
--- NOTE | 2025-03-07 16:25 | W.PN.UPDATE ---
Update Note
Progress Note Update
This is an addendum to H&P written by Nikki Mac. Patient seen and examined independently with PA.
84-year-old female past medical history of recent Klebsiella pneumonia bacteremia, pancreatic cancer status post chemoradiation and Whipple's procedure 25 years ago, moderate to large hiatal hernia, esophageal stricture status post dilation, GJ
ulcer, COPD, hypertension, �thyroid cancer status post thyroidectomy, hypothyroidism, chronic diarrhea, right hip ORIF, chronic anemia, anxiety, compression fractures, kyphosis, presenting with ongoing worsening watery diarrhea.
Patient was recently hospitalized from 02/23 to 02/27 for after being admitted for fever and sepsis secondary to Klebsiella pneumonia bacteremia. �CT abdomen pelvis showed concern for cholangitis due to ductal dilatation of biliary system and she had
subsequent MRI which showed severe intrahepatic ductal dilatation of the left lobe of the liver concerning for intrahepatic gallstones although LFTs were normal. �There was discussion about transfer to [facility] for ERCP. �GI discussed with
advanced GI team at [facility] and given normal LFTs and lack of GI symptoms abdominal pain antibiotics were started and outpatient ERCP was arranged for 03/21.
Bacteremia improved with ceftriaxone and Flagyl. �Patient completed Augmentin until 03/08, however antibiotic was stopped 3 days ago due to diarrhea.
Vital signs normal apart from temperature of 100.2.
Labs show leukocytosis. �No transaminitis on labs. �Anemia stable at 9.2.
Concern for Antibiotic associated Diarrhea vs C. Difficile vs rule out recurrent sepsis/bacteremia secondary to Klebsiella pneumonia secondary to acute cholangitis from choledocholithiasis versus�
Check blood cultures. �Check C. difficile and stool culture.� Clear liquid diet.� IV fluids. �Resume Zosyn.�
--- NOTE | 2025-03-07 17:05 | CM ---
Addendum entered by Rosie Ybarra 03/07/25 17:15:
Confirms prescription coverage, also has P[facility]
Original Note:
CM reviewed chart and met with pt bedside in ED. Pt lives alone in a 1 story mobile home, [address].
Independent in ADLs, personal care and ambulation. No assistive devices, still driving.
Hx VN 20 years ago, unknown agency, hx [facility]
Has outpatient ERCP scheduled for 03/21.
PCP: Lawrence Tillman
Pharmacy: [facility]
CM will continue to follow for all discharge planning needs.
[2025-03-07] MEDS: HEPARIN 5000 UNITS SC (19:53)
--- NOTE | 2025-03-07 22:00 | PTCARENOTE ---
During shift report, patient's daughter called and was very agitated. She demanded to know what was going on with her mother and expressed how unhappy they have been with the care last week and during this current admission. Daughter stated she
would be contacting higher administration. RN went to meet patient and patient was already agitated. Patient demanded to know why staff was wearing gowns, had put a bed alarm in place and why she wasn't allowed to eat (current order is for clear
liquid diet). RN did her best to deescalate the situation with patient and daughter, explained all questions to the best of her ability.
[2025-03-07] MEDS: ATIVAN PO (22:05)
[2025-03-08] VITALS (9 sets, daily range): BP systolic 127–177; BP diastolic 67–88
[2025-03-08] MEDS: TYLENOL 650 MG PO (00:56)
[2025-03-08] MEDS: ZOSYN 50 IV ×4 (01:05→20:17)
[2025-03-08] MEDS: SYNTHROID 150 MCG PO (05:48)
--- NOTE | 2025-03-08 07:13 | CON.GI ---
Addendum entered and electronically signed by Elijah Camargo MD 03/08/25 12:08:
I saw and examined the patient.
The HOT BOX OPERATOR or PA's note was reviewed and I agree with the note.
Comment:
Pt is a 85 y/o female with a hx of of pancreatic cancer, Whipple 2000 who had recent admission for klebsiella bacteremia with intrahepatic biliary ductal dilation. Sent home on augmentin, fevers continued and not feeling well. stopped augmentin
and represented to ER
oriented
abd: soft, not tender
impression
hx of klebsiella bacteremia
abnl biliary anatomy ?cholangitis
plan:
antibiotics
ERCP
f/u urine studies
Addendum entered and electronically signed by ARLETTE Farrar 03/08/25 11:42:
reiewed with Dr. Marion will proceed for ERCP today-- pt updated
Original Note:
Consultation
-
Date/Time Consultation Requested: 03/07/252024
Date/Time Consultation Performed: 03/08/25 0715
Requesting Provider: Dionicio Schulte MD
Performing Provider: ARLETTE Roberts, Elijah Camargo MD
Reason for Consultation: fever, chills recent ductal dilatation
Medical History
Chief Complaint / HPI
Chief Complaint: fever
History of Present Illness:
85 yo F pmhx panc ca s/p Whipple 2000, ? anastomotic ulcer 10 years ago, thyroid CA with thyroidectomy, HTN, CKD, anxiety, HH repair, prior miah presenting to ER with fevers and chills. In review of record pt with recent admission with similar
symptoms with noted klebsiella bacteremia. CT was noted with prior whipple marked intrahepatic biliary dilatation with concern for cholangitis, right liver lobe nodule larger with concern for malignant process vs inflammatory process, slow transit
of stool. Follow up MRI with severe intrahepatic ductal dilation left lobe 2 ovid low signal intensity filling defects left hepatic lobe suspicious for intrahepatic stone vs pneumobilia could be similar and prior whipple. LFT's where normal and
case was reviewed with advance team at [facility] and pt did not proceed for ERCP but was sent up for OP ERCP with Dr. Mraion at end of February. Pt was recommended Augmentin and stopped 3 days prior to admission due to diarrhea. On return no imaging
completed with WBC 12,500, hbg 9.2, platelets 465, creat 1.2, normal LFT's. UA with + WBC's.
In review with patient she admits to wt loss, decreased appetite and upper abdominal mild discomfort. She also admits to recurrent shaking chills prior to admission. She admits to mild GERD and continued diarrhea since antibiotics were started
several weeks ago. She otherwise denies odynophagia, dysphagia, nausea, vomiting, constipation or rectal bleeding. No change in urine or stool color. She follow with Dr. Montemayor and due for upcoming EGD with hx prior colonoscopy several years ago
with Dr. Montemayor. Pt denies NSAID or anticoagulation use. Has been on PPI, sucralfate and Creon.
Past Medical History
Past Medical History: Cancer (thyroid cancer, pancreatic CA 2000 with whipple ), HTN and Other (anxiety, anastomotic ulcer 10 years ago )
Past Surgical History: Other ([facility], urogynaecologist, HH repair, tubal ligation, Whipple, thyroidectomy)
Social History
Tobacco: Non-Smoker
Alcohol: None
Drug: None
Living: Alone
Employment: Retired
Family History
Family History: Other (aunt with colon CA in 60's )
Allergies / Home Medications
Allergy/AdvReac Type Severity Reaction Status Date / Time
No Known Allergies Allergy Unverified 03/07/25 10:33
�Medication �Instructions �Recorded
lorazepam 0.5 mg tablet 0.5 mg PO TID 09/13/10
multivitamin with folic acid 400 1 tab PO DAILY Supplement 09/13/10
mcg tablet (Tab-A-Roberth)
denosumab 60 mg/mL subcutaneous 60 mg SQ [id number] 04/01/20
syringe (Prolia)
escitalopram oxalate 20 mg tablet 20 mg PO DAILY Mental 04/01/20
Health/Anxiety
levothyroxine 150 mcg tablet 150 mcg PO DAILY Thyroid 04/01/20
benazepril 20 1 tab PO DAILY Blood Pressure 02/23/25
mg-hydrochlorothiazide 12.5 mg
tablet
ewzzrz-kmqtiuoy-tnkzwvy 1 cap PO DAILYPRN PRN with snacks 02/23/25
36,000-114,000-180,000 unit
capsule,delay rel (Creon)
wdhdae-ecfyemtu-fyjyekw 3 cap PO AC Pancreas 02/23/25
36,000-114,000-180,000 unit
capsule,delay rel (Creon)
omeprazole 40 mg capsule,delayed 40 mg PO BID Gastrointestinal Issue 02/23/25
release
sucralfate 1 gram tablet 1 g PO DAILY Gastrointestinal Issue 02/23/25
amoxicillin 875 mg-potassium 1 tab PO BID #30 tabs 02/27/25
clavulanate 125 mg tablet
Review of Systems
-
History Source: Patient
Constitutional: Reports Weight Loss and Fatigue
EENT: Reports No Symptoms
Respiratory: Reports No Symptoms
Abdomen/GI: Reports Abdominal Pain and Diarrhea
: Reports No Symptoms
Musculoskeletal: Reports No Symptoms
Skin: Reports No Symptoms
Neurological: Reports Weakness
Endocrine: Reports No Symptoms
Hematologic/Lymphatic: Reports No Symptoms
Vital Signs
Temp Pulse Resp BP Pulse Ox
98.3 F 69 18 139/71 94
03/08/25 03:01 03/08/25 03:01 03/08/25 03:01 03/08/25 03:01 03/08/25 03:01
Physical Exam
Exam
General: Well Developed, Well Nourished and No Apparent Distress
HEENT: Normocephalic and Anicteric
Respiratory: Clear
Cardiac: Regular Rhythm
GI: Soft, Non Distended and Tender (very minimal discomfort )
Musculoskeletal: No Clubbing and No Cyanosis
Skin: Warm and Dry
Neuro: Awake and Alert
Psych: Calm
Results
WBC 12.5 10^3/uL (4.8-10.8) H 03/07/25 13:37
Hgb 9.2 g/dL (12.0-16.0) L 03/07/25 13:37
Hct 29.2 % (37.0-47.0) L 03/07/25 13:37
MCV 89.8 fL (81.0-99.0) 03/07/25 13:37
Plt Count 465 10^3/uL (130-400) H 03/07/25 13:37
Absolute Neuts (auto) 10.2 10^3/uL (1.4-6.5) H 03/07/25 13:37
Sodium 138 mmol/L (135-145) 03/07/25 13:37
Potassium 4.4 mmol/L (3.5-5.1) 03/07/25 13:37
Chloride 104 mmol/L (98-107) 03/07/25 13:37
Carbon Dioxide 26 mmol/L (22-30) 03/07/25 13:37
BUN 17 mg/dl (7-17) 03/07/25 13:37
Creatinine 1.2 mg/dL (0.6-1.0) H 03/07/25 13:37
Calcium 9.7 mg/dl (8.4-10.2) 03/07/25 13:37
Total Bilirubin 0.5 mg/dl (0.2-1.3) 03/07/25 13:37
AST 21 U/L (14-36) 03/07/25 13:37
ALT 13 U/L (0-35) 03/07/25 13:37
Alkaline Phosphatase 120 U/L (38-126) 03/07/25 13:37
Diagnostic Image Results:
02/23/25 CT a/p
1. Post Whipple procedure. There is new marked intrahepatic biliary dilation in the left lobe of the liver, suggesting that the patient's fever is most likely related to cholangitis.
2. Right lower lobe 7 mm nodule, larger as compared with 3 mm prior. Given the interval change in size, at least somewhat suspicious for malignancy. Given the relatively small amount of growth over five-year interval, an inflammatory etiology is
also possible.
3. Bilateral renal cortical scarring. Asymmetric atrophic changes of the right kidney as compared with the left.
4. Material with the appearance of stool throughout the distal small bowel compatible with significant degree of slow transit.
5. Advanced aortoiliac atherosclerotic changes.
6. Numerous chronic appearing compression deformities of thoracic and lumbar spine as above. Probable chronic posttraumatic deformity left iliac wing.
02/24/25 MR Abdomen W/o & W Contrast
Motion limited exam.
Severe intrahepatic ductal dilatation in the left lobe of the liver. Two ovoid low signal intensity filling defects in the central left hepatic duct raising suspicion for intrahepatic gallstones (hepatolithiasis). Intrahepatic pneumobilia could have
a similar MRI appearance.
Previous Whipple procedure.
Prior GI Procedures:
EGD: prior in past with Dr. Montemayor ? anastomic ulcer
Colonoscopy: prior in past with Dr. Montemayor
Assessment / Plan
-
85 yo F pmhx panc ca s/p Whipple 2000, ? anastomotic ulcer 10 years ago, thyroid CA with thyroidectomy, HTN, CKD, anxiety, HH repair, prior miah presenting to ER with fevers and chills. In review of record pt with recent admission with similar
symptoms with noted klebsiella bacteremia. CT was noted with prior whipple marked intrahepatic biliary dilatation with concern for cholangitis, right liver lobe nodule larger with concern for malignant process vs inflammatory process, slow transit
of stool. Follow up MRI with severe intrahepatic ductal dilation left lobe 2 ovid low signal intensity filling defects left hepatic lobe suspicious for intrahepatic stone vs pneumobilia could be similar and prior whipple. LFT's where normal and
case was reviewed with advance team at [facility] and pt did not proceed for ERCP but was sent up for OP ERCP with Dr. Marion at end of February. Pt was recommended Augmentin and stopped 3 days prior to admission due to diarrhea. On return no imaging
completed with WBC 12,500, hbg 9.2, platelets 465, creat 1.2, normal LFT's. UA with + WBC's.
-recurrent shaking chill with recent decreased appetite, wt loss and upper abdominal discomfort
-recent admission with similar symptoms - normal LFT's but klebsiella bacteremia and imaging concern for cholangitis
-ALLEGRA with ovid signal defect left intrahepatic stone vs pneumobilia
-liver nodule larger than prior imaging
-leukocytosis
-diarrhea - abx related
-panc ca s/p Whipple 2000 on chronic creon
chronic anemia
-GERD
-hypoalbumenia
other med problems:
-? anastomotic ulcer 10 years ago
- thyroid CA with thyroidectomy
- HTN
-CKD
-anxiety
-HH repair
-prior miah
PLAN:
etiology of symptoms with concern for biliary etiology-with hx panc CA and prior whipple- cholangitis/ intrahepatic stone with recent klebsiella bacteremia but LFT's remain normal, urinary with + WBC in urine but no symptoms vs other
repeat blood cx pending, UA with + WBC , cx pending but no urinary symptoms
c-diff neg with diarrhea
sent message to Dr. Marion to review case-- pt was due for ERCP later this month but may need sooner
trend labs
cont abx
had clear breakfast now NPO pending possible GI intervention later today vs tomorrow
family updated
Pt follows with Dr. Montemayor Outpatient
-
-
-
Thank you for consultation and allowing me to participate in the patient's care. Please call the community resource consultant GI physician during the after hours with any questions or concerns.
[2025-03-08 08:19] LABS: Hematocrit 26.0 % (37.0-47.0); Hemoglobin 8.2 g/dL (12.0-16.0); Mean Corp Hgb Conc. 31.5 g/dL (33.0-37.0); Mean Corpuscular Volume 89.7 fL (81.0-99.0); Platelet Count 380 10^3/uL (130-400); Red Cell Dist. Width 14.8 % (11.5-14.5)
[2025-03-08] MEDS: ATIVAN 0.5 MG PO ×3 (08:28→21:48)
[2025-03-08] MEDS: VISBIOME 2 CAP PO (08:28)
[2025-03-08] MEDS: ZENPEP DELAYED RELEASE CAPSULE 3 CAPSULE PO ×2 (08:28→17:37)
[2025-03-08] MEDS: ZESTRIL 20 MG PO (08:29)
[2025-03-08] MEDS: HEPARIN 5000 UNITS SC (08:29)
[2025-03-08] MEDS: LEXAPRO 20 MG PO (08:29)
[2025-03-08 08:50] LABS: ALT (SGPT) < 10 U/L (0-35); AST (SGOT) 18 U/L (14-36); Albumin 3.1 g/dl (3.5-5.0); Alkaline Phosphatase 92 U/L (38-126); Blood Urea Nitrogen 14 mg/dl (7-17); Calcium 8.6 mg/dl (8.4-10.2); Carbon Dioxide 26 mmol/L (22-30); Chloride 108 mmol/L (98-107); Estimated Creatinine Clearance 24 ml/min; Glucose 91 mg/dl (70-99); Potassium 4.4 mmol/L (3.5-5.1); Sodium 139 mmol/L (135-145); Total Protein 6.2 g/dl (6.3-8.2); eGFR 41.06
--- NOTE | 2025-03-08 11:04 | CM ---
CM reviewed chart, patient seen bedside, patient recognized from previous recent admission. Patient denies needs at this time. GI following. Will continue to follow for all discharge planning needs.
Plan; home no needs anticipated
--- NOTE | 2025-03-08 11:20 | W.PN.HOSP.TC ---
Today's Communication/Plan
-
follow up further GI recs
IV Zosyn
awaiting cultures
start d5LR while NPO
Assessment / Plan
Assessment / Plan
Ms. Dai Canada is a 84 yo woman with past medical history of recent admission 02/23-02/27 for Klebsiella pneumonia bacteremia , pancreatic cancer status post chemoradiation and Whipple's procedure 25 years ago, moderate to large hiatal hernia, esophageal
stricture status post dilation, COPD, hypertension, �thyroid cancer status post thyroidectomy, hypothyroidism presenting with ongoing worsening watery diarrhea post antibiotic course.
Patient was recently hospitalized from 02/23 to 02/27 for after being admitted for fever and sepsis secondary to Klebsiella pneumonia bacteremia. �CT abdomen pelvis showed concern for cholangitis due to ductal dilatation of biliary system and she had
subsequent MRI which showed severe intrahepatic ductal dilatation of the left lobe of the liver concerning for intrahepatic gallstones although LFTs were normal. �There was discussion about transfer to [facility] for ERCP. �GI discussed with
advanced GI team at [facility] and given normal LFTs and lack of GI symptoms abdominal pain antibiotics were started and outpatient ERCP was arranged for 03/21.
Bacteremia improved with ceftriaxone and Flagyl. �Patient completed Augmentin until 03/08, however antibiotic was stopped 3 days ago due to diarrhea.
Sepsis, clinical concern for recurrent bacteremia due to cholangitis
-IV Zosyn
-IVF
-C. Diff negative
-blood cultures pending
-appreciate GI consult
-NPO for possible GI intervention
Essential Hypertension
-Continue lisinopril in place of benazepril
Hx Pancreatic Cancer s/p Whipple
-Continue Creon
Hx Thyroid Cancer s/p Thyroidectomy
-Continue Levothyroxine
Anxiety
-Continue lorazepam and escitalopram
CKD Stage III
-Creatinine at baseline
Chronic Anemia
-Hgb Stable
DVT proph: scd
Code Status: Full Code
Anticipated Discharge: 24 - 48 hours
Subjective/Interval History
-
Date of Service: March 08, 2025
she is hungry asking about food
overall feels a bit better than yesterday
no significant abdominal pain
Objective Data
-
Labs:
Laboratory Results
03/08/25
07:30
WBC 7.1
Hgb 8.2 L
Hct 26.0 L
Plt Count 380
Sodium 139
Potassium 4.4
Chloride 108 H
Carbon Dioxide 26
BUN 14
Creatinine 1.3 H
Glucose 91
Calcium 8.6
Total Bilirubin 0.4
AST 18
ALT < 10
Alkaline Phosphatase 92
Vital Signs:
Vital Signs
Temp Pulse Resp BP Pulse Ox
98.7 F 69 16 142/73 94
03/08/25 07:36 03/08/25 08:29 03/08/25 07:36 03/08/25 08:29 03/08/25 07:36
I&O
03/07/25 03/08/25 03/09/25
06:59 06:59 06:59
Intake Total 290 / 290
Balance 290 / 290
Review of Systems
-
History Source: Patient
All other systems: Reviewed and negative
Physical Exam
-
General: No Apparent Distress
HEENT: Moist Mucous Membranes
Respiratory: Clear to Auscultation and Non Labored Respirations; Negative Accessory Resp Muscle Use
Cardiac: Regular Rhythm and S1/S2; Negative Tachycardic
GI: Soft and Nontender
Neuro: AO x 3
Psych: Calm; Negative Confused
Data Reviewed
-
Diagnostic Radiology: Report Reviewed by me
Labs: Labs Reviewed by me
[2025-03-08] MEDS: ZENPEP DELAYED RELEASE CAPSULE PO ×2 (12:40→12:51)
[2025-03-08] MEDS: D5LR 1000 IV (12:42)
[2025-03-09] MEDS: ZOSYN 50 IV ×2 (02:05→08:02)
[2025-03-09 03:25] VITALS: BP 125/77
[2025-03-09] MEDS: SYNTHROID 150 MCG PO (06:24)
[2025-03-09 07:00] VITALS: BP 126/58
[2025-03-09 07:34] LABS: Hematocrit 26.3 % (37.0-47.0); Hemoglobin 8.3 g/dL (12.0-16.0); Mean Corp Hgb Conc. 31.6 g/dL (33.0-37.0); Mean Corpuscular Volume 90.1 fL (81.0-99.0); Platelet Count 437 10^3/uL (130-400); Red Cell Dist. Width 14.7 % (11.5-14.5)
[2025-03-09] MEDS: ZENPEP DELAYED RELEASE CAPSULE 3 CAPSULE PO ×3 (08:01→15:54)
[2025-03-09] MEDS: LEXAPRO 20 MG PO (08:02)
[2025-03-09] MEDS: ZESTRIL 20 MG PO (08:02)
[2025-03-09] MEDS: VISBIOME 2 CAP PO (08:02)
[2025-03-09] MEDS: ATIVAN 0.5 MG PO ×3 (08:02→21:03)
[2025-03-09 08:08] LABS: ALT (SGPT) 14 U/L (0-35); AST (SGOT) 23 U/L (14-36); Albumin 3.3 g/dl (3.5-5.0); Alkaline Phosphatase 111 U/L (38-126); Blood Urea Nitrogen 16 mg/dl (7-17); Calcium 8.1 mg/dl (8.4-10.2); Carbon Dioxide 26 mmol/L (22-30); Chloride 103 mmol/L (98-107); Estimated Creatinine Clearance 21 ml/min; Glucose 186 mg/dl (70-99); Magnesium 1.5 mg/dl (1.6-2.3); Potassium 4.9 mmol/L (3.5-5.1); Sodium 137 mmol/L (135-145); Total Protein 6.4 g/dl (6.3-8.2); eGFR 34.58
--- NOTE | 2025-03-09 10:32 | W.PN.GI.CBS2 ---
Today's Communication / Plan
-
fever, klebsiella bacteremia
Assessment / Plan
-
85 yo F pmhx panc ca s/p Whipple 2000, ? anastomotic ulcer 10 years ago, thyroid CA with thyroidectomy, HTN, CKD, anxiety, HH repair, prior miah presenting to ER with fevers and chills. In review of record pt with recent admission with similar
symptoms with noted klebsiella bacteremia. CT was noted with prior whipple marked intrahepatic biliary dilatation with concern for cholangitis, right liver lobe nodule larger with concern for malignant process vs inflammatory process, slow transit
of stool. Follow up MRI with severe intrahepatic ductal dilation left lobe 2 ovid low signal intensity filling defects left hepatic lobe suspicious for intrahepatic stone vs pneumobilia could be similar and prior whipple. LFT's where normal and
case was reviewed with advance team at [facility] and pt did not proceed for ERCP but was sent up for OP ERCP with Dr. Marion at end of February. Pt was recommended Augmentin and stopped 3 days prior to admission due to diarrhea. On return no imaging
completed with WBC 12,500, hbg 9.2, platelets 465, creat 1.2, normal LFT's. UA with + WBC's.
S/p ERCP yesterday. Tolerated the procedure well. Pediatric colonoscope was advanced via afferent limb and had hepaticojejunal anastomosis was reached. This was mildly strictured, however bile was seen to drain. Anastomosis was entered and
cholangiogram showed dilated left intrahepatic ducts and normal-appearing right hepatic ducts. No obvious filling defect was noted in the left intrahepatic ducts, empirical multiple balloon sweeps were performed without any extraction of stone or
sludge.
At this time, source of her recent Klebsiella bacteremia remains unclear. The reasonable suspicion was biliary, given her bacteremia species and abnormal findings from her MRI/MRCP, despite her normal LFT. Elective ERCP was planned but was
performed yesterday as patient returned to ER. This was essentially a negative study. Blood culture taken during this admission is negative. During this time looks bit dirty, not sure if this is/was the source. Mx abx as per ID/hospitalist. GI
s/o, call w/ questions.
Total Time Spent with Patient (in minutes): 35
Subjective
Subjective
Date of Service: March 09, 2025
No events overnight. Denies abdominal pain.
Objective
Data Reviewed
Laboratory Data:
Laboratory Results
03/09/25 06:53
03/09/25 06:53
Laboratory Results
Magnesium 1.5 mg/dl (1.6-2.3) L 03/09/25 06:53
Total Bilirubin 0.3 mg/dl (0.2-1.3) 03/09/25 06:53
AST 23 U/L (14-36) 03/09/25 06:53
ALT 14 U/L (0-35) 03/09/25 06:53
Alkaline Phosphatase 111 U/L (38-126) 03/09/25 06:53
Vital Signs and I&O:
Vital Signs
Temp Pulse Resp BP Pulse Ox
97.9 F 73 16 125/77 96
03/09/25 07:00 03/09/25 07:00 03/09/25 07:00 03/09/25 08:02 03/09/25 07:00
I&O
03/08/25 03/09/25 03/10/25
06:59 06:59 06:59
Intake Total 290 / 290 790 / 790
Balance 290 / 290 790 / 790
[2025-03-09 11:00] VITALS: BP 152/68
--- NOTE | 2025-03-09 11:26 | W.PN.HOSP.TC ---
Today's Communication/Plan
-
stop Zosyn and monitor
Assessment / Plan
Assessment / Plan
Ms. Dai Canada is a 84 yo woman with past medical history of recent admission 02/23-02/27 for Klebsiella pneumonia bacteremia , pancreatic cancer status post chemoradiation and Whipple's procedure 25 years ago, moderate to large hiatal hernia, esophageal
stricture status post dilation, COPD, hypertension, �thyroid cancer status post thyroidectomy, hypothyroidism presenting with ongoing worsening watery diarrhea post antibiotic course.
Patient was recently hospitalized from 02/23 to 02/27 for after being admitted for fever and sepsis secondary to Klebsiella pneumonia bacteremia. �CT abdomen pelvis showed concern for cholangitis due to ductal dilatation of biliary system and she had
subsequent MRI which showed severe intrahepatic ductal dilatation of the left lobe of the liver concerning for intrahepatic gallstones although LFTs were normal. �There was discussion about transfer to [facility] for ERCP. �GI discussed with
advanced GI team at [facility] and given normal LFTs and lack of GI symptoms abdominal pain antibiotics were started and outpatient ERCP was arranged for 03/21.
She was treated with IV antibiotics, discharged on oral. �Patient was scheduled to complete Augmentin until 03/08, however antibiotic was stopped 3 days ago due to diarrhea.
Patient's main complaints on admission were fatigue, chills at home. She was admitted on IV Zosyn, has remained afebrile since admission. ERCP without obstruction or e/o cholangitis. Cultures thus far negative. Will stop antibiotics and observe
an additional 24 hours.
ERCP 03/08/25
Impression:
- A classic Whipple was found, characterized by healthy appearing
mucosa.
- Patent but strictured hepaticojejunal anastomosis, characterized
by mild stenosis was found in the afferent limb of jejunum.
- An area of afferent limb was successfully injected with Spot
tattoo.
- The left main hepatic duct and left intrahepatic branches were
severely dilated.
- The biliary tree was swept and sludge was found. No stone was
extracted.
Diarrhea
Reported chills at home
Fatigue
-C. Diff negative, antibiotics stopped since cessation Augmentin
-blood cultures thus far negative
-appreciate GI consult, patient is s/p ERCP, findings above, no blockage, essentially negative study
-tolerating regular diet
-no evident source of infection. Discussed briefly with ID today. I will stop antibiotics and observe an additional 24 hours. Possible that patient was having AE from Augmentin contributing to presenting symptoms.
CKD III
-creatinine mildly up from baseline today
-patient was NPO and s/p procedure yesterday
-continue to hold HCTZ, hold Lisinopril
-follow up urine studies
-she is eating and drinking well today
Essential Hypertension
-hold Lisinopril with mild bump in creatinine
-resume home benazepril-HCTZ tomorrow if renal function back to baseline
Hx Pancreatic Cancer s/p Whipple
-Continue Creon
Hx Thyroid Cancer s/p Thyroidectomy
-Continue Levothyroxine
Anxiety
-Continue lorazepam and escitalopram
CKD Stage III
-Creatinine at baseline
Chronic Anemia
-Hgb Stable
DVT proph: scd
Code Status: Full Code
Anticipated Discharge: 24 - 48 hours
Subjective/Interval History
-
Date of Service: March 09, 2025
feeling okay
eating and drinking okay
denies significant pain
Objective Data
-
Labs:
Laboratory Results
03/09/25
06:53
WBC 9.6
Hgb 8.3 L
Hct 26.3 L
Plt Count 437 H
Sodium 137
Potassium 4.9
Chloride 103
Carbon Dioxide 26
BUN 16
Creatinine 1.5 H
Glucose 186 H
Calcium 8.1 L
Total Bilirubin 0.3
AST 23
ALT 14
Alkaline Phosphatase 111
Vital Signs:
Vital Signs
Temp Pulse Resp BP Pulse Ox
97.9 F 73 16 125/77 96
03/09/25 07:00 03/09/25 07:00 03/09/25 07:00 03/09/25 08:02 03/09/25 07:00
I&O
03/08/25 03/09/25 03/10/25
06:59 06:59 06:59
Intake Total 290 / 290 790 / 790
Balance 290 / 290 790 / 790
Review of Systems
-
History Source: Patient
All other systems: Reviewed and negative
Physical Exam
-
General: No Apparent Distress
HEENT: Moist Mucous Membranes
Respiratory: Clear to Auscultation and Non Labored Respirations; Negative Accessory Resp Muscle Use
Cardiac: Regular Rhythm and S1/S2; Negative Tachycardic
GI: Soft and Nontender
Neuro: AO x 3
Psych: Calm; Negative Confused
Data Reviewed
-
Diagnostic Radiology: Report Reviewed by me
Labs: Labs Reviewed by me
[2025-03-09] MEDS: MAGNESIUM SULFATE 50 IV (11:52)
--- NOTE | 2025-03-09 14:46 | PN.CDI ---
CDI
- -
CDI:
Physician Documentation Request
Admit Date: 03/07/25 16:09
Dear Doctor Markus,
Patient admitted for evaluation of diarrhea, fatigue and chills reported at home.
Creatinine results:
Laboratory Tests
03/07/25 03/08/25 03/09/25
13:37 07:30 06:53
Creatinine 1.2 H 1.3 H 1.5 H
Could you please provide a diagnosis that supports the above lab abnormalities and additional evaluation,/monitoring:
ABIMBOLA
abnormal lab value clinically insignificant
Other
Criteria for ABIMBOLA*
1 Increase in serum creatinine by > or = to 0.3 mg/dL (> or = to 26.5 micromol/L) within 48 hours, OR
2 Increase in serum creatinine to > or = to 1.5 times baseline, which is known or presumed to have occurred within 7 days, OR
3 Urine volume < 0.5 nL/kg/hour for six hours
Use of terms such as suspected, likely, concern for, or probable (associated with a specific diagnosis that is being evaluated, monitored, or treated as if it exists) are acceptable and can be coded in the inpatient setting, when documented at the
time of discharge.
Thank you,
Gisel Azevedo RN, BSN
CDI Specialist
tiger text
Please use your independent medical judgment in providing your response.
[2025-03-09 15:00] VITALS: BP 143/70
[2025-03-09 19:00] VITALS: BP 138/70
[2025-03-09] MEDS: HEPARIN SC ×2 (20:33)
[2025-03-09 23:00] VITALS: BP 141/67
[2025-03-10] VITALS (7 sets, daily range): BP systolic 133–161; BP diastolic 66–87; PULSE 72; O2SAT 97
[2025-03-10] MEDS: SYNTHROID 150 MCG PO (06:33)
--- NOTE | 2025-03-10 07:07 | W.PN.HOSP.TC ---
Today's Communication/Plan
-
monitor H&H
IV iron infusion
ID eval
cont monitoring off abx
PT eval
Assessment / Plan
Assessment / Plan
Physical Exam
General: No Apparent Distress
HEENT: Moist Mucous Membranes
Respiratory: Clear to Auscultation and Non Labored Respirations; Negative Accessory Resp Muscle Use
Cardiac: Regular Rhythm and S1/S2; Negative Tachycardic
GI: Soft and Nontender
Neuro: AO x 3 conversant coherent
Psych: Calm
84F hx moderate to large hiatal hernia, esophageal stricture status post dilation, COPD, Pancreatic Ca Whipple (25y ago) HTN Thyroid Ca Thyroidectomy p/w worsening watery diarrhea post antibiotic course. Patient was recently hospitalized from
02/23-02/27 for sepsis secondary to Klebsiella pneumonia bacteremia. �CT abd/pelvis showed concern for cholangitis due to ductal dilatation of biliary system and she had subsequent MRI which showed severe intrahepatic ductal dilatation of the left lobe
of the liver concerning for intrahepatic gallstones although LFTs were normal. �There was discussion about transfer to [facility] for ERCP. �GI discussed with advanced GI team at [facility] and given normal LFTs and lack of GI symptoms
abdominal pain antibiotics were started and outpatient ERCP was arranged for 03/21. She was treated with IV antibiotics, discharged on oral. �Patient was scheduled to complete Augmentin until 03/08, however antibiotic was stopped 3 days prior due to
diarrhea. Patient's main complaints on admission were fatigue, chills at home. She was admitted on IV Zosyn, remained afebrile since this admission. ERCP without obstruction or e/o cholangitis. Cultures thus far negative.
ERCP 03/08/25
Impression:
- A classic Whipple was found, characterized by healthy appearing
mucosa.
- Patent but strictured hepaticojejunal anastomosis, characterized
by mild stenosis was found in the afferent limb of jejunum.
- An area of afferent limb was successfully injected with Spot
tattoo.
- The left main hepatic duct and left intrahepatic branches were
severely dilated.
- The biliary tree was swept and sludge was found. No stone was
extracted.
Diarrhea
Reported chills at home
Fatigue
-C. Diff negative, antibiotics stopped since cessation Augmentin
-blood cultures thus far negative
-appreciate GI consult, patient is s/p ERCP, findings above, no blockage, essentially negative study
-tolerating regular diet
-no evident source of infection.
-Possible that patient was having AE from Augmentin contributing to presenting symptoms.
-abx since stopped, last dose zosyn 03/09
- persistent low grade fevers though no significant Leukocytosis
- ID eval requested
Severe Iron Deficiency Anemia
-IV iron supplementation started 03/10
-monitor H&H
CKD III
-creatinine high 1.5 since trended down
-monitor
Essential Hypertension
-Lisinopril briefly held with mild bump in creatinine, since resumed with holding parameters
Hx Pancreatic Cancer s/p Whipple
-Continue Creon
Hx Thyroid Cancer s/p Thyroidectomy
-Continue Levothyroxine
Anxiety
-Continue lorazepam and escitalopram
PT eval appreciated home health
DVT proph: scd
Code Status: Full Code
Discussed with patient and patient's daughter Keiry
I spent a total of 45 minutes with the patient or on the floor. More than 50% of this time involved counseling and coordination of care.
Anticipated Discharge: 24 - 48 hours
Subjective/Interval History
-
Date of Service: March 10, 2025
No acute distress. Resting comfortably in bed. Overall reports feeling well. Denies new acute issues. Low grade fever spikes noted.
Objective Data
-
Labs:
Laboratory Results
03/10/25
06:00
WBC Pending
Hgb Pending
Hct Pending
Plt Count Pending
Sodium Pending
Potassium Pending
Chloride Pending
Carbon Dioxide Pending
BUN Pending
Creatinine Pending
Glucose Pending
Calcium Pending
Vital Signs:
Vital Signs
Temp Pulse Resp BP Pulse Ox
99.9 F 83 16 161/84 93
03/10/25 03:00 03/10/25 03:00 03/10/25 03:00 03/10/25 03:00 03/10/25 03:00
I&O
03/09/25 03/10/25 03/11/25
06:59 06:59 06:59
Intake Total 790 / 790 300 / 300
Output Total 100 / 100
Balance 790 / 790 200 / 200
[2025-03-10] MEDS: VISBIOME 2 CAP PO (08:04)
[2025-03-10] MEDS: ZENPEP DELAYED RELEASE CAPSULE 3 CAPSULE PO ×3 (08:04→17:09)
[2025-03-10] MEDS: LEXAPRO 20 MG PO (08:04)
[2025-03-10] MEDS: ATIVAN 0.5 MG PO ×3 (08:04→21:16)
[2025-03-10] MEDS: HEPARIN 5000 UNITS SC ×2 (08:05→20:14)
[2025-03-10 08:15] LABS: Hematocrit 24.3 % (37.0-47.0); Hemoglobin 7.5 g/dL (12.0-16.0); Mean Corp Hgb Conc. 30.9 g/dL (33.0-37.0); Mean Corpuscular Volume 90.3 fL (81.0-99.0); Nucleated Red Blood Cells % 0 %; Platelet Count 398 10^3/uL (130-400); Red Cell Dist. Width 14.8 % (11.5-14.5)
[2025-03-10 09:22] LABS: Blood Urea Nitrogen 22 mg/dl (7-17); Calcium 8.1 mg/dl (8.4-10.2); Carbon Dioxide 25 mmol/L (22-30); Chloride 107 mmol/L (98-107); Estimated Creatinine Clearance 26 ml/min; Glucose 96 mg/dl (70-99); Potassium 4.2 mmol/L (3.5-5.1); Sodium 138 mmol/L (135-145); eGFR 45.19
[2025-03-10 09:28] LABS: Iron < 20 ug/dl (37-170)
[2025-03-10 09:31] LABS: Total Iron Binding Capacity 212 ug/dl (265-497)
[2025-03-10 10:03] LABS: Ferritin 21.9 ng/ml (11.1-264.0)
[2025-03-10 10:34] LABS: Folate 10.3 ng/ml (2.76-20)
[2025-03-10 11:03] LABS: Hematocrit 25.7 % (37.0-47.0); Hemoglobin 7.9 g/dL (12.0-16.0)
--- NOTE | 2025-03-10 13:33 | CON.ID ---
Consultation
-
Date/Time Consultation Requested: 03/10/2025 1141
Date/Time Consultation Performed: 03/10/2025 1330
Requesting Provider: Dr. Espinoza
Performing Provider: Dr. Rico
Reason for Consultation: Fever
Chief Complaint / Past History
Chief Complaint
Fever and chills
History of Present Illness
Dai Canada is an 84-year-old female being evaluated at the request of Dr. Espinoza in regards to fever. History is obtained from chart review, along with patient interview.
The patient is known to the Infectious Diseases service, having been seen during a recent admission dated 02/23/2025. During that admission, the patient was found to be bacteremic with Klebsiella pneumoniae, likely secondary to cholangitis due to
biliary obstruction. Her fevers resolved, and she was ultimately discharged to home, to continue with a course of Augmentin through 03/08.
The patient presents back to the emergency room on 03/07 with complaints of chills. She reported that she had not felt well since discharge and noted ongoing weakness and fatigue. She reported subjective fevers with chills over the prior several
days. She additionally complained of some abdominal discomfort, but no pain.
Since admission, she has not had any fevers, although she did have 1 episode of a low-grade temperature of 100.3 degrees. She underwent ERCP on 03/08, with findings of biliary sludge, but no stones.
Past History
Additional Past Medical History:
Hx pancreatic CA; s/p chemo/xrt, Whipple (1999)
Recent episode of cholangitis
COPD
HTN
Hypothyroidism; s/p thyroidectomy
Hiatal hernia
Hx esophageal stricture s/p dilatation
GERD
Hx GJ ulcer
Chronic diarrhea
Hx right hip fracture s/p ORIF
Allergy History:
No Known Allergies Allergy (Unverified 03/07/25 10:33)
Medications Reviewed: Yes
Current Antibiotics:
None
Social History
Tobacco: Former Smoker
Alcohol: None
Drug: None
Personal:
Living: Alone
Family History
Family History: Not Pertinent
Review of Systems
Vital Signs
Temp Pulse Resp BP Pulse Ox
97.7 F 67 20 134/68 97
03/10/25 11:00 03/10/25 11:00 03/10/25 11:00 03/10/25 11:00 03/10/25 11:00
Physical Exam
Physical Exam
Constitutional: No Acute Distress, Comfortable, Non-toxic and Other (Very frail in appearance)
Eyes: No Conjunctival Hemorrhage and Sclera Anicteric
Oral: No Thrush and No Ulcers
Cardiovascular: Regular Rate and S1/S2; Negative S3/S4
Pulmonary: Clear; Negative Wheezes, Rales or Rhonchi
Gastrointestinal: Soft, Non Tender, Non Distended, Normal Bowel Sounds, No Rebound and No Guarding
Genito-Urinary: Negative Desai
Extremities: Negative Edema, Cyanosis or Erythema
Neurological: Awake and Alert
Psychological: Calm
Lab / Diagnostic Study Results
03/10/25 10:28
03/10/25 07:42
Abs Immat Gran (auto) 0.1 10^3/uL (0-0.05) H 03/10/25 07:42
Absolute Neuts (auto) 6.7 10^3/uL (1.4-6.5) H 03/10/25 07:42
Absolute Lymphs (auto) 0.8 10^3/uL (1.2-3.4) L 03/10/25 07:42
Absolute Monos (auto) 0.6 10^3/uL (0.1-0.6) 03/10/25 07:42
Absolute Basos (auto) 0.0 10^3/uL (0-0.2) 03/10/25 07:42
Immature Gran % 0.7 % (0-0.5) H 03/10/25 07:42
Neutrophils % 81.9 % (42.2-75.2) H 03/10/25 07:42
Lymphocytes % 9.2 % (20.5-51.1) L 03/10/25 07:42
Monocytes % 7.2 % (1.7-9.3) 03/10/25 07:42
Eosinophils % 0.6 % (0-6) 03/10/25 07:42
Basophils % 0.4 % (0-2) 03/10/25 07:42
Lactic Acid Cancelled 03/07/25 17:15
Ur Squamous Epith Cells >30 /LPF (Few) 03/07/25 13:37
Microbiology Results
Micro:
03/07/25 13:37 Blood Culture - Preliminary
Blood/Venous No Growth in 48 hours- Final report to follow
03/07/25 13:48 Blood Culture - Preliminary
Blood/Venous No Growth in 48 hours- Final report to follow
03/07/25 13:37 Urine Culture - Final
Urine NO GROWTH
03/08/25 00:17 C. difficile GDH Antigen & Toxins - Final
Feces/Stool Negative for toxigenic C.difficile
Imaging:
02/24/2025 MRI abdomen: Severe intrahepatic ductal dilatation in the left lobe of the liver. Two ovoid low signal intensity filling defects in the central left hepatic duct raising suspicion for intrahepatic gallstones (hepatolithiasis). Intrahepatic
pneumobilia could have a similar MRI appearance.
Assessment / Plan
Outpatient fevers; none since admission
Hx recent ascending cholangitis/Klebsiella bacteremia
S/P ERCP without findings of gallstones
Hx pancreatic CA; s/p chemo/xrt, Whipple (1999)
COPD
HTN
Hypothyroidism; s/p thyroidectomy
Hiatal hernia
Hx esophageal stricture s/p dilatation
GERD
Hx GJ ulcer
Chronic diarrhea
Recommendations:
At present, patient without leukocytosis, no significant fevers.
Would continue to monitor off of antibiotics for the present, although would repeat blood cultures should there be any temperature to 100.5 degrees or greater.
Will continue to monitor white count and temperature curve.
[2025-03-10] MEDS: FERRLECIT 110 MG IV (14:23)
[2025-03-10] MEDS: TYLENOL 650 MG PO (14:38)
[2025-03-10] MEDS: HEPARIN SC (19:31)
[2025-03-11 03:00] VITALS: BP 159/73
[2025-03-11] MEDS: SYNTHROID 150 MCG PO (06:23)
--- NOTE | 2025-03-11 06:26 | PTCARENOTE ---
Pt reports 'black' bowel movement. Flushed w/o notifiying RN. Hat placed in toilet. [employer] covering notified.
[2025-03-11 08:27] VITALS: BP 170/88
[2025-03-11] MEDS: VISBIOME 2 CAP PO (08:31)
[2025-03-11] MEDS: LEXAPRO 20 MG PO (08:31)
[2025-03-11] MEDS: ZENPEP DELAYED RELEASE CAPSULE 3 CAPSULE PO ×2 (08:31→17:12)
[2025-03-11] MEDS: ATIVAN 0.5 MG PO ×3 (08:32→21:26)
[2025-03-11] MEDS: ZESTRIL 20 MG PO (08:35)
[2025-03-11 09:01] LABS: Hematocrit 26.9 % (37.0-47.0); Hemoglobin 8.2 g/dL (12.0-16.0); Mean Corp Hgb Conc. 30.5 g/dL (33.0-37.0); Mean Corpuscular Volume 90.3 fL (81.0-99.0); Platelet Count 452 10^3/uL (130-400); Red Cell Dist. Width 14.6 % (11.5-14.5)
[2025-03-11 09:31] LABS: Blood Urea Nitrogen 17 mg/dl (7-17); Calcium 8.3 mg/dl (8.4-10.2); Carbon Dioxide 28 mmol/L (22-30); Chloride 106 mmol/L (98-107); Estimated Creatinine Clearance 28 ml/min; Glucose 135 mg/dl (70-99); Magnesium 1.7 mg/dl (1.6-2.3); Potassium 4.3 mmol/L (3.5-5.1); Sodium 142 mmol/L (135-145); eGFR 50.17
--- NOTE | 2025-03-11 10:13 | W.PN.HOSP.TC ---
Today's Communication/Plan
-
see AP
Assessment / Plan
Assessment / Plan
HPI: 84F hx moderate to large hiatal hernia, esophageal stricture status post dilation, COPD, Pancreatic Ca Whipple (25y ago), HTN, Thyroid Ca s/p Thyroidectomy p/w worsening watery diarrhea post antibiotic course. Patient was recently hospitalized
from 02/23 - 02/27 for sepsis secondary to Klebsiella pneumonia bacteremia. CT abd/pelvis showed concern for cholangitis due to ductal dilatation of biliary system and she had subsequent MRI which showed severe intrahepatic ductal dilatation of the left
lobe of the liver concerning for intrahepatic gallstones although LFTs were normal. �There was discussion about transfer to [facility] for ERCP. �GI discussed with advanced GI team at [facility] and given normal LFTs and lack of GI
symptoms/abdominal pain antibiotics were started and outpatient ERCP was arranged for 03/21. She was treated with IV antibiotics, discharged on oral. Patient was scheduled to complete Augmentin until 03/08, however antibiotic was stopped 3 days prior
due to diarrhea. Patient's main complaints on admission were fatigue, chills at home. She was admitted on IV Zosyn, remained afebrile since this admission. s/p ERCP this admission which was without obstruction or e/o cholangitis. Cultures are
negative.
ERCP 03/08/25
A classic Whipple was found, characterized by healthy appearing mucosa.
Patent but strictured hepaticojejunal anastomosis, characterized by mild stenosis was found in the afferent limb of jejunum.
An area of afferent limb was successfully injected with Spot tattoo.
The left main hepatic duct and left intrahepatic branches were severely dilated.
The biliary tree was swept and sludge was found. No stone was extracted.
A/P:
# Diarrhea, resolved
# Reported chills at home, resolved
# Fatigue, resolved
C. Diff negative, antibiotics stopped since cessation Augmentin
blood cultures negative
appreciate GI consult, s/p ERCP, findings above, no blockage, essentially negative study
tolerating regular diet
no evident source of infection.
Possible that patient was having AE from Augmentin contributing to presenting symptoms.
abx since stopped, last dose zosyn 03/09
Appreciate ID input, without leukocytosis and no significant fever, monitor off antibiotics
# Severe Iron Deficiency Anemia
# black stool noted by RN x2 episodes, Hemoccult positive
IV iron supplementation started 03/10, can transition to PO iron at the time of discharge
monitor H&H, Hgb improved to 8.2 today
GI to eval for plan of inpatient endoscopic evaluation
# CKD III
creatinine high 1.5 since trended down
monitor
# Essential Hypertension
Lisinopril briefly held with mild bump in creatinine, since resumed with holding parameters
# Hx Pancreatic Cancer s/p Whipple
Continue Creon
# Hx Thyroid Cancer s/p Thyroidectomy
Continue Levothyroxine
# Anxiety
Continue lorazepam and escitalopram
PT eval appreciated home health
DVT proph: scd
Code Status: Full Code
DW RN
DW daughter at bedside
total time spent 51 min
Anticipated Discharge: Within 24 hours
Subjective/Interval History
-
Date of Service: March 11, 2025
Objective Data
-
Labs:
Laboratory Results
03/11/25
08:11
WBC 6.5
Hgb 8.2 L
Hct 26.9 L
Plt Count 452 H
Sodium 142
Potassium 4.3
Chloride 106
Carbon Dioxide 28
BUN 17
Creatinine 1.1 H
Glucose 135 H
Calcium 8.3 L
Vital Signs:
Vital Signs
Temp Pulse Resp BP Pulse Ox
36.7 C 65 20 170/88 93
03/11/25 08:27 03/11/25 08:27 03/11/25 08:27 03/11/25 08:27 03/11/25 08:27
I&O
03/10/25 03/11/25 03/12/25
06:59 06:59 06:59
Intake Total 300 / 300 960 / 960
Output Total 100 / 100
Balance 200 / 200 960 / 960
Review of Systems
-
History Source: Patient
All other systems: Reviewed and negative
Abdomen/GI: Reports Black Stools (x2 episodes); Denies Abdominal Pain, Nausea or Vomiting
Physical Exam
-
General: Well Developed, No Apparent Distress, Comfortable and Conversant
HEENT: Normocephalic and Atraumatic
Respiratory: Clear to Auscultation and Non Labored Respirations; Negative Accessory Resp Muscle Use
Cardiac: Regular Rhythm and S1/S2
GI: Soft, Nontender, Nondistended and Normal Bowel Sounds
Neuro: Awake and Alert
Psych: Calm and Intact Judgement/Insight
Data Reviewed
-
Labs: Labs Reviewed by me
[2025-03-11] MEDS: HEPARIN SC ×2 (10:58→19:39)
[2025-03-11 11:35] VITALS: BP 169/89
--- NOTE | 2025-03-11 13:24 | W.PN.ID1 ---
Date of Service
Date of Service: March 11, 2025
Today's Communication
Observe off antibiotics.
Assessment / Plan
Outpatient fevers; none since admission
Hx recent ascending cholangitis/Klebsiella bacteremia
S/P ERCP without findings of gallstones
Hx pancreatic CA; s/p chemo/xrt, Whipple (1999)
COPD
HTN
Hypothyroidism; s/p thyroidectomy
Hiatal hernia
Hx esophageal stricture s/p dilatation
GERD
Hx GJ ulcer
Chronic diarrhea
Recommendations:
At present, patient without leukocytosis, no significant fevers.
Would continue to monitor off of antibiotics for the present.
Will continue to monitor white count and temperature curve.
����������������������������������������������������������
Chief Complaint
-: Fever
Subjective / Review of Systems
Review of Systems: No Fever
Vital Signs / Physical Exam
Vital Signs
Vital Signs
Temp Pulse Resp BP Pulse Ox
99.3 F 73 16 169/89 96
03/11/25 11:35 03/11/25 11:35 03/11/25 11:35 03/11/25 11:35 03/11/25 11:35
Physical Exam
Constitutional: Comfortable, Chronically Ill, Non-toxic and Cachetic
Pulmonary: Non Labored
Gastrointestinal: Non Distended
Neurological: Other (Resting comfortably)
Psychological: Calm
Objective Data
Lab Data
Lab Results
03/11/25 08:11
03/11/25 08:11
Estimated Creat Clear 28 ml/min 03/11/25 08:11
Lactic Acid Cancelled 03/07/25 17:15
Total Bilirubin 0.3 mg/dl (0.2-1.3) 03/09/25 06:53
AST 23 U/L (14-36) 03/09/25 06:53
ALT 14 U/L (0-35) 03/09/25 06:53
Alkaline Phosphatase 111 U/L (38-126) 03/09/25 06:53
Most recent labs reviewed.
Micro Results:
03/07/25 13:37 Blood Culture - Preliminary
Blood/Venous No Growth in 72 hours- Final report to follow
03/07/25 13:48 Blood Culture - Preliminary
Blood/Venous No Growth in 72 hours- Final report to follow
03/07/25 13:37 Urine Culture - Final
Urine NO GROWTH
03/08/25 00:17 C. difficile GDH Antigen & Toxins - Final
Feces/Stool Negative for toxigenic C.difficile
Imaging:
02/24/2025 MRI abdomen: Severe intrahepatic ductal dilatation in the left lobe of the liver. Two ovoid low signal intensity filling defects in the central left hepatic duct raising suspicion for intrahepatic gallstones (hepatolithiasis). Intrahepatic
pneumobilia could have a similar MRI appearance.
[2025-03-11] MEDS: ZENPEP DELAYED RELEASE CAPSULE PO (13:47)
[2025-03-11] MEDS: FERRLECIT 110 MG IV (14:30)
[2025-03-11 15:15] VITALS: BP 155/76
[2025-03-11] MEDS: PROTONIX 40 MG PO (17:28)
[2025-03-11] MEDS: TYLENOL 650 MG PO (19:39)
[2025-03-11] MEDS: CARAFATE 1 GRAM PO (21:26)
[2025-03-11 23:47] VITALS: BP 151/76
[2025-03-12] MEDS: SYNTHROID 150 MCG PO (05:38)
[2025-03-12 07:15] VITALS: BP 146/93
[2025-03-12 07:25] LABS: Hematocrit 25.4 % (37.0-47.0); Hemoglobin 7.9 g/dL (12.0-16.0); Mean Corp Hgb Conc. 31.1 g/dL (33.0-37.0); Mean Corpuscular Volume 90.4 fL (81.0-99.0); Platelet Count 428 10^3/uL (130-400); Red Cell Dist. Width 14.3 % (11.5-14.5)
[2025-03-12 07:54] LABS: Blood Urea Nitrogen 16 mg/dl (7-17); Calcium 8.9 mg/dl (8.4-10.2); Carbon Dioxide 29 mmol/L (22-30); Chloride 107 mmol/L (98-107); Estimated Creatinine Clearance 28 ml/min; Glucose 99 mg/dl (70-99); Magnesium 1.7 mg/dl (1.6-2.3); Potassium 4.3 mmol/L (3.5-5.1); Sodium 141 mmol/L (135-145); eGFR 50.17
[2025-03-12] MEDS: PROTONIX 40 MG PO (09:08)
[2025-03-12] MEDS: ZENPEP DELAYED RELEASE CAPSULE 3 CAPSULE PO (09:08)
[2025-03-12] MEDS: CARAFATE 1 GRAM PO (09:09)
[2025-03-12] MEDS: ZESTRIL 20 MG PO (09:09)
[2025-03-12] MEDS: VISBIOME 2 CAP PO (09:09)
[2025-03-12] MEDS: ATIVAN 0.5 MG PO (09:09)
[2025-03-12] MEDS: LEXAPRO 20 MG PO (09:09)
--- NOTE | 2025-03-12 09:43 | W.PN.HOSP.TC ---
Addendum entered and electronically signed by Tammy Aguiar MD 03/13/25 11:54:
# Iron deficiency anemia was present on admission
Addendum entered and electronically signed by Tammy Aguiar MD 03/12/25 13:19:
# resolved [id number]
Addendum entered and electronically signed by Tammy Aguiar MD 03/12/25 12:58:
DC time 40 minutes
Original Note:
Today's Communication/Plan
-
see A/P
Assessment / Plan
Assessment / Plan
HPI: 84F hx moderate to large hiatal hernia, esophageal stricture status post dilation, COPD, Pancreatic Ca Whipple (25y ago), HTN, Thyroid Ca s/p Thyroidectomy p/w worsening watery diarrhea post antibiotic course. Patient was recently hospitalized
from 02/23 - 02/27 for sepsis secondary to Klebsiella pneumonia bacteremia. CT abd/pelvis showed concern for cholangitis due to ductal dilatation of biliary system and she had subsequent MRI which showed severe intrahepatic ductal dilatation of the left
lobe of the liver concerning for intrahepatic gallstones although LFTs were normal. �There was discussion about transfer to [facility] for ERCP. �GI discussed with advanced GI team at [facility] and given normal LFTs and lack of GI
symptoms/abdominal pain antibiotics were started and outpatient ERCP was arranged for 03/21. She was treated with IV antibiotics, discharged on oral. Patient was scheduled to complete Augmentin until 03/08, however antibiotic was stopped 3 days prior
due to diarrhea. Patient's main complaints on admission were fatigue, chills at home. She was admitted on IV Zosyn, remained afebrile since this admission. s/p ERCP this admission which was without obstruction or e/o cholangitis. Cultures are
negative.
ERCP 03/08/25
A classic Whipple was found, characterized by healthy appearing mucosa.
Patent but strictured hepaticojejunal anastomosis, characterized by mild stenosis was found in the afferent limb of jejunum.
An area of afferent limb was successfully injected with Spot tattoo.
The left main hepatic duct and left intrahepatic branches were severely dilated.
The biliary tree was swept and sludge was found. No stone was extracted.
A/P:
# Diarrhea, resolved
# Reported chills at home, resolved
# Fatigue, resolved
C. Diff negative, antibiotics stopped since cessation Augmentin
blood cultures negative
appreciate GI consult, s/p ERCP, findings above, no blockage, essentially negative study
tolerating regular diet
no evident source of infection.
Possible that patient was having AE from Augmentin contributing to presenting symptoms.
abx since stopped, last dose zosyn 03/09
Appreciate ID input, without leukocytosis and no significant fever, monitor off antibiotics
# Severe Iron Deficiency Anemia
# black stool noted by RN x2 episodes, Hemoccult positive
IV iron supplementation started 03/10, can transition to PO iron at the time of discharge
monitor H&H, Hgb at 7.9 today, d/w GI Dr Marion, [facility] outpt follow up
Can check CBC in 1 week, result to PCP
# CKD III
creatinine 1.5 -> 1.1 today
monitor
# Essential Hypertension
Lisinopril briefly held with mild bump in creatinine, since resumed with holding parameters
# Hx Pancreatic Cancer s/p Whipple
Continue Creon
# Hx Thyroid Cancer s/p Thyroidectomy
Continue Levothyroxine
# Anxiety
Continue lorazepam and escitalopram
PT eval appreciated home health
DVT proph: scd
Code Status: Full Code
DW GI Dr Marion
DW daughter at bedside
Anticipated Discharge: Today
Subjective/Interval History
-
Date of Service: March 12, 2025
Objective Data
-
Labs:
Laboratory Results
03/12/25
06:41
WBC 6.5
Hgb 7.9 L
Hct 25.4 L
Plt Count 428 H
Sodium 141
Potassium 4.3
Chloride 107
Carbon Dioxide 29
BUN 16
Creatinine 1.1 H
Glucose 99
Calcium 8.9
Vital Signs:
Vital Signs
Temp Pulse Resp BP Pulse Ox
36.6 C 70 16 146/93 96
03/12/25 07:15 03/12/25 07:15 03/12/25 07:15 03/12/25 09:09 03/12/25 07:15
I&O
03/11/25 03/12/25 03/13/25
06:59 06:59 06:59
Intake Total 960 / 960 530 / 530
Balance 960 / 960 530 / 530
Review of Systems
-
History Source: Patient
All other systems: Reviewed and negative
Abdomen/GI: Denies Abdominal Pain, Nausea or Vomiting
Physical Exam
-
General: Well Developed, No Apparent Distress, Comfortable and Conversant
HEENT: Normocephalic and Atraumatic
Respiratory: Clear to Auscultation and Non Labored Respirations; Negative Accessory Resp Muscle Use
Cardiac: Regular Rhythm and S1/S2
GI: Soft, Nontender, Nondistended and Normal Bowel Sounds
Neuro: Awake and Alert
Psych: Calm and Intact Judgement/Insight
Data Reviewed
-
Labs: Labs Reviewed by me
[2025-03-12 11:10] VITALS: BP 153/70
--- NOTE | 2025-03-12 11:13 | CM ---
CM reviewed chart, patient seen bedside with daughter, discussed plan for discharge today. IMM verbally reviewed, patient declining need for copy, placed in chart. CM discussed therapy recommendation of home PT, patient declining. Patient/daughter
inquiring about meals on wheels, provided information regarding meals on wheels in [facility]. Daughter to transport home. CM will continue to follow for all discharge planning needs.
Plan; home no needs.
--- NOTE | 2025-03-12 12:44 | W.DCSUMMARY ---
Discharge Summary
Discharge Data
Date of Admission: 03/07/25
Date of Discharge: 03/12/25
Total time spent discharging patient (in min): 40
-
Pending Results: No
Hospital Course
Principal Diagnosis:
Diarrhea, resolved, likely due to antibiotic side effect
Severe Iron Deficiency Anemia
Chronic Diagnoses:�
Esophageal stricture status post dilation,
COPD,
Pancreatic Ca Whipple (25y ago), continue creon
Thyroid Ca s/p Thyroidectomy, continue Levothyroxine
Chronic kidney disease stage III
Essential Hypertension
Anxiety, continue lorazepam and escitalopram
Hiatal hernia
Consultations:�
Gastroenterology
Infectious disease
Procedures:�
ERCP this admission 03/08/2025: unrevealing, no blockage noted
Clinical course:�
This is a 84-year-old female with past medical history as stated above, who presented with watery diarrhea post antibiotic course.
Her recent CT AP noted cholangitis and ductal dilatation of biliary system, and her subsequent MRI abdomen showed severe intrahepatic ductal dilatation of the left lobe of the liver concerning for intrahepatic gallstones.
She was pending outpatient ERCP to evaluate this abnormal finding.
Problem 1:
Diarrhea, resolved, likely due to antibiotic side effect.
C. difficile was negative.
Antibiotic was stopped, and her diarrhea resolved.
She underwent ERCP this admission with unrevealing results, showed no blockage.
She tolerated regular solid food without any problem.
Problem 2:
Severe Iron Deficiency Anemia, with black stool x 2 episodes.
The patient received IV iron while in the hospital and was discharged with oral iron going forward.
Bowel regimen with MiraLAX and Senokot-S were also added to alleviate the constipation side effect of supplemental iron.
Her hemoglobin was at 7.9 on the day of discharge. Per GI, she can follow-up outpatient for further workup.
She can check repeat CBC with result to her PCP in 1 week.
As for the rest of her medical problems, they were stable during her hospital stay.
Discharge Plan
-
Patient Disposition: Home with Home Care
Discharge Diagnosis/Procedures: Diarrhea, resolved;
Severe Iron Deficiency Anemia
Condition: Fair
Diet: As tolerated
Activity: As tolerated
Driving Restrictions: As prior to admission
Blood Work: CBC within 1 week, result to PCP
Referrals:
Lawrence Tillman DO [Family Provider, [facility]] - in less than 1 week
Additional Discharge Medication Instructions: Continue with iron supplement for your iron deficiency.
Iron tablet can make you constipated, take senokot-S as needed for constipation.
Stop antibiotic Augmentin
Prescriptions:
New
ferrous sulfate 325 mg (65 mg iron) tablet
325 mg PO DAILY Qty: 30 0RF
sennosides-docusate sodium [Senokot-S] 8.6-50 mg tablet
1 tab-cap PO BID PRN (Reason: Constipation) Qty: 30 0RF
(DME) CBC without diff
See Rx Instructions .ROUTE .MEDSUPPLY Qty: 1 0RF
Rx Instructions:
within 1 week (03/14 to 03/21), result to PCP
Continued
lorazepam 0.5 MG tablet
0.5 mg PO TID
multivitamin with folic acid [Tab-A-Roberth] 1 TABLET tablet
1 tab PO DAILY
levothyroxine 150 MCG tablet
150 mcg PO DAILY
escitalopram oxalate 20 MG tablet
20 mg PO DAILY
Prolia 60 MG/ML syringe
60 mg SQ [id number]
sucralfate 1 GRAM tablet
1 g PO TID
benazepril-hydrochlorothiazide 20-12.5 mg Tablet
1 tab PO DAILY
omeprazole 40 mg Capsule,Delayed Release(Dr/Ec)
40 mg PO BID
Creon 36,000-114,000- 180,000 unit Capsule,Delayed Release(Dr/Ec)
3 cap PO AC
Creon 36,000-114,000- 180,000 unit Capsule,Delayed Release(Dr/Ec)
1 cap PO DAILYPRN PRN (Reason: with snacks)
Discontinued
amoxicillin-pot clavulanate 875-125 mg tablet
1 tab PO BID Qty: 30 0RF
Rx Instructions:
for 15 days starting 02/27/25
Discharge Orders:
Discharge Patient (As Directed); Ordered 03/12/25
Ordered By: Tammy Aguiar
Discharge Date and Time
Discharge Date/Time: 03/12/25 11:48
Print Language: CROATIAN
--- NOTE | 2025-03-13 09:49 | PN.CDI ---
CDI
- -
CDI:
Physician Documentation Request
Admit Date: 03/07/25 16:09
Dear Doctor Cosme,
Patient presented to the ED with concerns of fever, feeling generally weak.
H&P and progress noted from 03/07-03/09 states 'chronic anemia-hgb stable'
03/10 progress note states 'Severe Iron Deficiency Anemia- IV supplementation started on 03/10'
Please clarify the following:
Iron deficiency anemia was present on admission
Iron deficiency anemia was not present on admission
Unable to determine
Use of terms such as suspected, likely, concern for, or probable (associated with a specific diagnosis that is being evaluated, monitored, or treated as if it exists) are acceptable and can be coded in the inpatient setting, when documented at the
time of discharge.
Thank you,
Gisel Azevedo RN, BSN
CDI Specialist
tiger text
Please use your independent medical judgment in providing your response.
== END 2025-03-12 11:48 | disposition home or self-care (01) | DRG 812 ==
LOC: 4 WEST ACU 16:09
PROVIDERS: Internal Medicine; Internal Medicine Gastroenterology; Nurse Practitioner Adult Health; Physician Assistant; Physician Assistant Medical; Student in an Organized Health Care Education/Training Program; ADMITTING PHYSICIAN Hospitalist; ATTENDING PHYSICIAN Internal Medicine; CONSULT PHYSICIAN Internal Medicine; CONSULT PHYSICIAN Internal Medicine Infectious Disease; EMERGENCY PHYSICIAN Emergency Medicine; FAMILY PHYSICIAN Family Medicine
PROC: BF101ZZ Fluoroscopy of Bile Ducts using Low Osmolar Contrast (ICD-10-PCS; 2025-03-08)
PROC: 0F798ZZ Dilation of Common Bile Duct, Via Natural or Artificial Opening Endoscopic (ICD-10-PCS; 2025-03-08)
DX: D50.9 Iron deficiency anemia, unspecified (principal); N17.9 Acute kidney failure, unspecified; K52.9 Noninfective gastroenteritis and colitis, unspecified; I12.9 Hypertensive chronic kidney disease with stage 1 through stage 4 chronic kidney disease, or unspecified chronic kidney disease; N18.30 Chronic kidney disease, stage 3 unspecified; Z85.07 Personal history of malignant neoplasm of pancreas; Z85.850 Personal history of malignant neoplasm of thyroid; E89.0 Postprocedural hypothyroidism; F41.9 Anxiety disorder, unspecified; J44.9 Chronic obstructive pulmonary disease, unspecified; K21.9 Gastro-esophageal reflux disease without esophagitis; K22.2 Esophageal obstruction; K44.9 Diaphragmatic hernia without obstruction or gangrene; K59.00 Constipation, unspecified; Z79.890 Hormone replacement therapy; Z80.0 Family history of malignant neoplasm of digestive organs; Z87.11 Personal history of peptic ulcer disease; Z87.891 Personal history of nicotine dependence; Z90.411 Acquired partial absence of pancreas; Z92.21 Personal history of antineoplastic chemotherapy; Z92.3 Personal history of irradiation; Z11.52 Encounter for screening for COVID-19; T36.95XA Adverse effect of unspecified systemic antibiotic, initial encounter
CPT/HCPCS: 74330; 76000; 80048; 80053; 81003; 81015; 82570; 82728; 82746; 83540; 83550; 83605; 83735; 84100; 84300; 84443; 85014; 85018; 85025; 85027; 86850; 86900; 86901; 87040; 87086; 87324; 87449; 87811; 96361; 96374; 97116; 97162; 99285; C1769; J2916